=== PATIENT | male | born 1940 | race Caucasian/White ===

== ENCOUNTER → 2016-12-21 | Outpatient (REF) | payer MEDICARE ==
[2016-12-21 12:11] LABS: BASO # 0.1 K/mm3 (0.0-0.2); EOS # 0.1 K/mm3 (0.0-0.50); EOS % 1.7 % (0.0-3.0); LARGE UNSTAINED CELL # 0.3 K/mm3 (0.0-0.4); LARGE UNSTAINED CELL % 3.7 % (0.0-4.0); LYMPH # 2.8 K/mm3 (1.5-4.5); LYMPH % 40.6 % (24.0-44.0); MEAN CORPUSCULAR HEMOGLOBIN 33.9 pg (27.0-33.0); MEAN CORPUSCULAR HGB CONC 32.2 g/dl (32.0-36.5); MEAN CORPUSCULAR VOLUME 105.1 fl (80.0-96.0); MONO # 0.5 K/mm3 (0.0-0.8); MONO % 7.6 % (0.0-5.0); NEUTROPHILS # 3.1 K/mm3 (1.8-7.7); NEUTROPHILS % 45.4 % (36.0-66.0); PLATELET COUNT, AUTOMATED 291 k/mm3 (150-450); RED CELL DISTRIBUTION WIDTH 13.9 % (11.5-14.5); WHITE BLOOD COUNT 6.9 K/mm3 (4.0-10.0)
[2016-12-21 12:13] LABS: INR 2.07
[2016-12-21 12:45] LABS: ALBUMIN 3.4 GM/DL (3.2-5.2); ALBUMIN/GLOBULIN RATIO 0.97 (1.00-1.93); ALKALINE PHOSPHATASE 83 U/L (45-117); ALT/SGPT 29 U/L (12-78); ANION GAP 4 MEQ/L (8-16); AST/SGOT 15 U/L (15-37); BILIRUBIN,TOTAL 1.1 MG/DL (0.2-1.0); BLOOD UREA NITROGEN 17 MG/DL (7-18); CALCIUM LEVEL 8.7 MG/DL (8.8-10.2); CARBON DIOXIDE LEVEL 30 MEQ/L (21-32); CHLORIDE LEVEL 106 MEQ/L (98-107); CREATININE FOR GFR 0.77 MG/DL (0.70-1.30); FERRITIN 403 NG/ML (26-388); GLOMERULAR FILTRATION RATE > 60.0 (>42); GLUCOSE, FASTING 124 MG/DL (83-110); PERCENT SATURATION 43.4 % (19.7-37.4); POTASSIUM SERUM 4.7 MEQ/L (3.5-5.1); SODIUM LEVEL 140 MEQ/L (136-145); TOTAL IRON BINDING CAPACITY 242 UG/DL (250-450); TOTAL PROTEIN 6.9 GM/DL (6.4-8.2)
== END ==
LOC: M SFHCPLAZ 11:40
PROVIDERS: ATTEND Family Medicine
DX: I48.91 Unspecified atrial fibrillation (principal); D75.89 Other specified diseases of blood and blood-forming organs; E78.5 Hyperlipidemia, unspecified; Z12.5 Encounter for screening for malignant neoplasm of prostate; Z79.899 Other long term (current) drug therapy
CPT/HCPCS: 36415; 80053; 82728; 83036; 83550; 85025; 85610; 85730; 86140; G0103

== ENCOUNTER → 2017-01-28 | Outpatient (REF) | payer MEDICARE ==
[2017-01-28 11:33] LABS: MEAN CORPUSCULAR HEMOGLOBIN 34.6 pg (27.0-33.0); MEAN CORPUSCULAR HGB CONC 33.1 g/dl (32.0-36.5); MEAN CORPUSCULAR VOLUME 104.6 fl (80.0-96.0); RED CELL DISTRIBUTION WIDTH 13.8 % (11.5-14.5); WHITE BLOOD COUNT 6.7 K/mm3 (4.0-10.0)
[2017-01-28 11:41] LABS: INR 1.91
[2017-01-28 11:53] LABS: BASOPHILS 2 % (0-4); EOSINOPHILS 1 % (0-5)
[2017-01-28 12:13] LABS: ALBUMIN 3.3 GM/DL (3.2-5.2); ALBUMIN/GLOBULIN RATIO 0.87 (1.00-1.93); ALKALINE PHOSPHATASE 90 U/L (45-117); ALT/SGPT 32 U/L (12-78); ANION GAP 4 MEQ/L (8-16); AST/SGOT 17 U/L (15-37); BILIRUBIN,TOTAL 1.1 MG/DL (0.2-1.0); BLOOD UREA NITROGEN 17 MG/DL (7-18); CALCIUM LEVEL 8.9 MG/DL (8.8-10.2); CARBON DIOXIDE LEVEL 30 MEQ/L (21-32); CHLORIDE LEVEL 105 MEQ/L (98-107); CHOLESTEROL LEVEL 121 MG/DL (<200); CREATININE FOR GFR 0.81 MG/DL (0.70-1.30); FREE T4 1.24 NG/DL (0.76-1.46); GLOMERULAR FILTRATION RATE > 60.0 (>42); GLUCOSE, FASTING 133 MG/DL (83-110); POTASSIUM SERUM 4.6 MEQ/L (3.5-5.1); SODIUM LEVEL 139 MEQ/L (136-145); TOTAL PROTEIN 7.1 GM/DL (6.4-8.2); TRIGLYCERIDES LEVEL 46 MG/DL (<150)
== END ==
LOC: M SFHCPLAZ 09:37
PROVIDERS: ATTEND Family Medicine
DX: D75.89 Other specified diseases of blood and blood-forming organs (principal); E78.5 Hyperlipidemia, unspecified; E03.9 Hypothyroidism, unspecified; R73.01 Impaired fasting glucose; I26.99 Other pulmonary embolism without acute cor pulmonale

== ENCOUNTER → 2017-05-24 | Outpatient (REF) | payer MEDICARE ==
[2017-05-24 12:23] LABS: BASO # 0.1 K/mm3 (0.0-0.2); EOS # 0.1 K/mm3 (0.0-0.50); EOS % 1.2 % (0.0-3.0); LARGE UNSTAINED CELL # 0.2 K/mm3 (0.0-0.4); LARGE UNSTAINED CELL % 2.8 % (0.0-4.0); LYMPH # 2.7 K/mm3 (1.5-4.5); LYMPH % 45.3 % (24.0-44.0); MEAN CORPUSCULAR HEMOGLOBIN 34.3 pg (27.0-33.0); MEAN CORPUSCULAR HGB CONC 32.9 g/dl (32.0-36.5); MEAN CORPUSCULAR VOLUME 104.3 fl (80.0-96.0); MONO # 0.5 K/mm3 (0.0-0.8); MONO % 8.6 % (0.0-5.0); NEUTROPHILS # 2.3 K/mm3 (1.8-7.7); NEUTROPHILS % 41.1 % (36.0-66.0); PLATELET COUNT, AUTOMATED 316 k/mm3 (150-450); RED CELL DISTRIBUTION WIDTH 13.9 % (11.5-14.5); WHITE BLOOD COUNT 5.7 K/mm3 (4.0-10.0)
[2017-05-24 12:26] LABS: INR 1.82
[2017-05-24 12:35] LABS: ALBUMIN 3.5 GM/DL (3.2-5.2); ALBUMIN/GLOBULIN RATIO 0.88 (1.00-1.93); ALKALINE PHOSPHATASE 90 U/L (45-117); ALT/SGPT 28 U/L (12-78); ANION GAP 7 MEQ/L (8-16); AST/SGOT 17 U/L (15-37); BILIRUBIN,TOTAL 1.1 MG/DL (0.2-1.0); BLOOD UREA NITROGEN 21 MG/DL (7-18); CALCIUM LEVEL 8.6 MG/DL (8.8-10.2); CARBON DIOXIDE LEVEL 28 MEQ/L (21-32); CHLORIDE LEVEL 105 MEQ/L (98-107); GLOMERULAR FILTRATION RATE > 60.0 (>42); GLUCOSE, FASTING 107 MG/DL (83-110); POTASSIUM SERUM 4.8 MEQ/L (3.5-5.1); SODIUM LEVEL 140 MEQ/L (136-145); TOTAL PROTEIN 7.5 GM/DL (6.4-8.2)
[2017-05-24 12:37] LABS: VITAMIN B12 LEVEL 412 PG/ML (247-911)
== END ==
LOC: M SFHCPLAZ 09:42
PROVIDERS: ATTEND Family Medicine
DX: E55.9 Vitamin D deficiency, unspecified (principal); D75.89 Other specified diseases of blood and blood-forming organs; Z79.01 Long term (current) use of anticoagulants; Z79.899 Other long term (current) drug therapy

== ENCOUNTER → 2017-09-02 | Outpatient (REF) | payer MEDICARE ==
[2017-09-02 11:11] LABS: INR 2.23
== END ==
LOC: M SFHCPLAZ 10:44
DX: Z51.81 Encounter for therapeutic drug level monitoring (principal); Z79.01 Long term (current) use of anticoagulants
CPT/HCPCS: 85610

== ENCOUNTER → 2017-09-23 | Outpatient (REF) | payer MEDICARE ==
[2017-09-23 12:04] LABS: INR 2.05; PROTHROMBIN TIME 23.8 SECONDS (12.4-14.5)
[2017-09-23 12:05] LABS: PARTIAL THROMBOPLASTIN TIME 37.6 SECONDS (26.8-37.9)
[2017-09-23 12:24] LABS: ESTIMATED AVERAGE GLUCOSE 126 MG/DL (60-110)
[2017-09-23 12:25] LABS: ALBUMIN 3.7 GM/DL (3.2-5.2); ANION GAP 6 MEQ/L (8-16); BLOOD UREA NITROGEN 25 MG/DL (7-18); C REACTIVE PROTEIN QUANTITATIV < 0.30 MG/DL (0.00-0.30); CALCIUM LEVEL 9.2 MG/DL (8.8-10.2); CARBON DIOXIDE LEVEL 27 MEQ/L (21-32); CHLORIDE LEVEL 105 MEQ/L (98-107); CHOLESTEROL LEVEL 118 MG/DL (<200); CHOLESTEROL RISK RATIO 2.269 (<5); CPK CREATINE PHOSPHOKINASE 120 U/L (39-308); CREATININE FOR GFR 0.73 MG/DL (0.70-1.30); FREE T4 1.41 NG/DL (0.76-1.46); GLOMERULAR FILTRATION RATE > 60.0 (>42); GLUCOSE, FASTING 115 MG/DL (83-110); HDL CHOLESTEROL 52 MG/DL (>40); NON-HDL-C 66 MG/DL; PHOSPHORUS LEVEL 2.5 MG/DL (2.5-4.9); POTASSIUM SERUM 4.6 MEQ/L (3.5-5.1); PSA SCREENING 1.13 NG/ML (< 4.0); SODIUM LEVEL 138 MEQ/L (136-145); TRIGLYCERIDES LEVEL 60 MG/DL (<150)
== END ==
LOC: M SFHCPLAZ 09:05
DX: E78.5 Hyperlipidemia, unspecified (principal); E03.9 Hypothyroidism, unspecified; E11.9 Type 2 diabetes mellitus without complications; Z12.5 Encounter for screening for malignant neoplasm of prostate; I26.99 Other pulmonary embolism without acute cor pulmonale; G57.21 Lesion of femoral nerve, right lower limb
CPT/HCPCS: 82550

== ENCOUNTER → 2017-09-28 | Outpatient (CLI) | payer MEDICARE ==
[~2017-09-28] MED LIST: GASTROGRAFIN SOLUTION 30ML (Q9963) As Ordered; ISOVUE-370 76% 100ML VIAL (Q9967) As Ordered
== END ==
LOC: M RAD 13:45
DX: G57.21 Lesion of femoral nerve, right lower limb (principal)
CPT/HCPCS: Q9963

== ENCOUNTER → 2017-11-02 | Outpatient (CLI) | payer MEDICARE | LOC: M RAD 10:41 | DX: M79.651 Pain in right thigh (principal) | CPT/HCPCS: 93971 ==

== ENCOUNTER → 2017-11-13 | Outpatient (CLI) | payer MEDICARE | LOC: M RAD 10:01 | DX: M54.16 Radiculopathy, lumbar region (principal) | CPT/HCPCS: 72148 ==

== ENCOUNTER → 2018-01-11 | Outpatient (CLI) | payer MEDICARE | LOC: M WUC 09:37 | DX: M16.0 Bilateral primary osteoarthritis of hip (principal) | CPT/HCPCS: 73502 ==

== ENCOUNTER → 2018-01-25 | Outpatient (CLI) | payer MEDICARE ==
[~2018-01-25] MED LIST changes: +CONRAY-43 43% 50ML VIAL (Q9960) As Ordered; -GASTROGRAFIN SOLUTION 30ML (Q9963) As Ordered; -ISOVUE-370 76% 100ML VIAL (Q9967) As Ordered; +LIDOCAINE 1% MDV 20ML VIAL As Ordered; +TRIAMCINOLONE ACETONIDE SUSP 40 MG/ML VIAL (J3301) As Ordered
== END ==
LOC: M RADPRO 09:55
DX: M16.0 Bilateral primary osteoarthritis of hip (principal)
CPT/HCPCS: 20610

== ENCOUNTER → 2018-02-01 | Outpatient (REF) | payer MEDICARE ==
[2018-02-01 12:32] LABS: BASO # 0.1 10^3/uL (0.0-0.2); BASO % 0.6 % (0.0-1.0); EOS # 0.2 10^3/uL (0.0-0.50); EOS % 2.1 % (0.0-3.0); HEMATOCRIT 42.2 % (42.0-52.0); HEMOGLOBIN 14.5 g/dl (13.5-17.5); IMMATURE GRANULOCYTE % 0.3 % (0-3.0); LYMPH # 3.4 10^3/uL (1.5-4.5); LYMPH % 37.9 % (24.0-44.0); MEAN CORPUSCULAR HEMOGLOBIN 34.2 pg (27.0-33.0); MEAN CORPUSCULAR HGB CONC 34.4 g/dl (32.0-36.5); MEAN CORPUSCULAR VOLUME 99.5 fl (80.0-96.0); MONO # 0.8 10^3/uL (0.0-0.8); MONO % 9.1 % (0.0-5.0); NEUTROPHILS # 4.5 10^3/uL (1.8-7.7); PLATELET COUNT, AUTOMATED 271 10^3/uL (150-450); RED BLOOD COUNT 4.24 10^6/uL (4.30-6.10); RED CELL DISTRIBUTION WIDTH 15.4 % (11.5-14.5)
[2018-02-01 12:45] LABS: INR 2.19; PROTHROMBIN TIME 25.2 SECONDS (12.4-14.5)
[2018-02-01 12:46] LABS: PARTIAL THROMBOPLASTIN TIME 34.2 SECONDS (26.8-37.9)
[2018-02-01 12:54] LABS: FREE T4 1.44 NG/DL (0.76-1.46)
[2018-02-01 13:49] LABS: ESTIMATED AVERAGE GLUCOSE 151 MG/DL (60-110); HEMOGLOBIN A1c 6.9 %
== END ==
LOC: M SFHCPLAZ 08:54
DX: D75.89 Other specified diseases of blood and blood-forming organs (principal); E03.9 Hypothyroidism, unspecified; E11.9 Type 2 diabetes mellitus without complications; Z79.01 Long term (current) use of anticoagulants
CPT/HCPCS: 84443

== ENCOUNTER → 2018-04-13 | Outpatient (REF) | payer MEDICARE ==
[2018-04-13 16:07] LABS: INR 2.62; PROTHROMBIN TIME 28.6 SECONDS (12.1-14.4)
== END ==
LOC: M SFHCPLAZ 12:50
DX: I48.2 Chronic atrial fibrillation (principal)
CPT/HCPCS: 85610

== ENCOUNTER → 2018-05-25 | Outpatient (CLI) | payer MEDICARE ==
[~2018-05-25] MED LIST changes: +LIDOCAINE 2% MDV 20 ML VIAL As Ordered
== END ==
LOC: M RADPRO 09:15
DX: M16.0 Bilateral primary osteoarthritis of hip (principal)
CPT/HCPCS: 20610

== ENCOUNTER → 2018-05-31 | Outpatient (REF) | payer MEDICARE ==
[2018-05-31 11:54] LABS: BASO % 0.5 % (0.0-1.0); EOS # 0.1 10^3/uL (0.0-0.50); EOS % 1.2 % (0.0-3.0); HEMATOCRIT 42.9 % (42.0-52.0); HEMOGLOBIN 14.7 g/dl (13.5-17.5); IMMATURE GRANULOCYTE % 0.3 % (0-3.0); LYMPH # 3.7 10^3/uL (1.5-4.5); LYMPH % 42.5 % (24.0-44.0); MEAN CORPUSCULAR HGB CONC 34.3 g/dl (32.0-36.5); MEAN CORPUSCULAR VOLUME 99.3 fl (80.0-96.0); MONO # 0.7 10^3/uL (0.0-0.8); MONO % 8.6 % (0.0-5.0); NEUTROPHILS % 46.9 % (36.0-66.0); PLATELET COUNT, AUTOMATED 308 10^3/uL (150-450); RED BLOOD COUNT 4.32 10^6/uL (4.30-6.10); RED CELL DISTRIBUTION WIDTH 15.5 % (11.5-14.5); RETICULOCYTE # 77.3 10^9/L (17-77); RETICULOCYTE % 1.8 % (0.5-1.5); WHITE BLOOD COUNT 8.6 10^3/uL (4.0-10.0)
[2018-05-31 12:03] LABS: INR 2.09; PROTHROMBIN TIME 23.9 SECONDS (12.1-14.4)
[2018-05-31 12:04] LABS: PARTIAL THROMBOPLASTIN TIME 33.5 SECONDS (25.4-37.6)
[2018-05-31 12:05] LABS: APPEARANCE, URINE CLEAR (CLEAR); BACTERIA, URINE AUTO NEGATIVE (NEGATIVE); BILIRUBIN, URINE AUTO NEGATIVE (NEGATIVE); BLOOD, URINE BLOOD NEGATIVE (NEGATIVE); COLOR, URINE YELLOW (YELLOW); GLUCOSE, URINE (UA) AUTO NEGATIVE (NEGATIVE); KETONE, URINE AUTO NEGATIVE (NEGATIVE); LEUKOCYTE ESTERASE, URINE AUTO NEGATIVE (NEGATIVE); MUCUS, URINE SMALL (NEGATIVE); NITRITE, URINE AUTO NEGATIVE (NEGATIVE); PROTEIN, URINE AUTO NEGATIVE (NEGATIVE); RBC, URINE AUTO 1 /HPF (0-3); SPECIFIC GRAVITY URINE AUTO 1.025 (1.002-1.035); SQUAMOUS EPITHELIAL CELL UR AU 0 /HPF (0-6); WBC, URINE AUTO 1 /HPF (0-3)
[2018-05-31 12:35] LABS: ALBUMIN 3.6 GM/DL (3.2-5.2); ALKALINE PHOSPHATASE 75 U/L (45-117); ALT/SGPT 42 U/L (12-78); ANION GAP 11 MEQ/L (8-16); AST/SGOT 17 U/L (7-37); BILIRUBIN,TOTAL 1.3 MG/DL (0.2-1.0); BLOOD UREA NITROGEN 32 MG/DL (7-18); CALCIUM LEVEL 9.4 MG/DL (8.8-10.2); CARBON DIOXIDE LEVEL 27 MEQ/L (21-32); CHLORIDE LEVEL 103 MEQ/L (98-107); CREATININE FOR GFR 0.78 MG/DL (0.70-1.30); GLOMERULAR FILTRATION RATE > 60.0 (>42); GLUCOSE, FASTING 115 MG/DL (70-100); MAGNESIUM LEVEL 2.5 MG/DL (1.8-2.4); SODIUM LEVEL 141 MEQ/L (136-145); TOTAL PROTEIN 7.2 GM/DL (6.4-8.2)
[2018-05-31 15:55] LABS: ESTIMATED AVERAGE GLUCOSE 131 MG/DL (60-110); HEMOGLOBIN A1c 6.2 %
[2018-05-31 16:22] LABS: MAU/CREAT RATIO 7.5 MCG/MG (0.0-30.0)
[2018-06-01 14:20] LABS: INSULIN LEVEL 31.7 uIU/mL (2.6-24.9)
== END ==
LOC: M SFHCPLAZ 08:44
DX: D75.89 Other specified diseases of blood and blood-forming organs (principal); I10 Essential (primary) hypertension; E11.9 Type 2 diabetes mellitus without complications; I26.99 Other pulmonary embolism without acute cor pulmonale
CPT/HCPCS: 83525

== ENCOUNTER → 2018-08-02 | Outpatient (REF) | payer MEDICARE ==
[2018-08-02 11:12] LABS: INR 1.84; PROTHROMBIN TIME 21.6 SECONDS (12.1-14.4)
== END ==
LOC: M SFHCPLAZ 08:36
DX: Z51.81 Encounter for therapeutic drug level monitoring (principal); Z79.01 Long term (current) use of anticoagulants
CPT/HCPCS: 85610

== ENCOUNTER → 2018-08-12 | Outpatient (REF) | payer MEDICARE ==
[2018-08-12 12:17] LABS: BASO # 0.1 10^3/uL (0.0-0.2); EOS # 0.2 10^3/uL (0.0-0.50); HEMATOCRIT 42.2 % (42.0-52.0); HEMOGLOBIN 14.3 g/dl (13.5-17.5); IMMATURE GRANULOCYTE % 0.4 % (0-3.0); LYMPH # 3.5 10^3/uL (1.5-4.5); LYMPH % 44.3 % (24.0-44.0); MEAN CORPUSCULAR HEMOGLOBIN 34.9 pg (27.0-33.0); MEAN CORPUSCULAR HGB CONC 33.9 g/dl (32.0-36.5); MEAN CORPUSCULAR VOLUME 102.9 fl (80.0-96.0); MONO # 0.8 10^3/uL (0.0-0.8); MONO % 9.8 % (0.0-5.0); NEUTROPHILS # 3.3 10^3/uL (1.8-7.7); NEUTROPHILS % 42.5 % (36.0-66.0); PLATELET COUNT, AUTOMATED 303 10^3/uL (150-450); RED CELL DISTRIBUTION WIDTH 15.7 % (11.5-14.5); WHITE BLOOD COUNT 7.9 10^3/uL (4.0-10.0)
[2018-08-12 12:21] LABS: HEMATOCRIT 42.2 % (42.0-52.0)
[2018-08-12 12:25] LABS: CHOLESTEROL LEVEL 133 MG/DL (<200); CHOLESTEROL RISK RATIO 2.418 (<5); CPK CREATINE PHOSPHOKINASE 79 U/L (39-308); FREE T4 1.35 NG/DL (0.76-1.46); HDL CHOLESTEROL 55 MG/DL (>40); LDL CHOLESTEROL 67 MG/DL (<100); NON-HDL-C 78 MG/DL; TRIGLYCERIDES LEVEL 57 MG/DL (<150)
[2018-08-12 12:26] LABS: INR 2.37; PROTHROMBIN TIME 26.4 SECONDS (12.1-14.4)
[2018-08-12 12:27] LABS: PARTIAL THROMBOPLASTIN TIME 36.5 SECONDS (25.4-37.6); VITAMIN B12 LEVEL 535 PG/ML (247-911)
[2018-08-12 13:24] LABS: ESTIMATED AVERAGE GLUCOSE 143 MG/DL (60-110); HEMOGLOBIN A1c 6.6 %
[2018-08-16 13:18] LABS: PRETREATED FOLATE FOR RBCFOL 7.3 NG/ML; RBC FOLATE 363 NG/ML (280-791)
== END ==
LOC: M SFHCPLAZ 08:53
DX: E53.8 Deficiency of other specified B group vitamins (principal); E11.9 Type 2 diabetes mellitus without complications; Z79.01 Long term (current) use of anticoagulants
CPT/HCPCS: 82550

== ENCOUNTER → 2018-08-15 | Outpatient (REF) | payer MEDICARE ==
[2018-08-15 11:49] LABS: BASO # 0.1 10^3/uL (0.0-0.2); BASO % 0.9 % (0.0-1.0); EOS # 0.2 10^3/uL (0.0-0.50); EOS % 2.5 % (0.0-3.0); HEMATOCRIT 42.5 % (42.0-52.0); HEMOGLOBIN 14.2 g/dl (13.5-17.5); IMMATURE GRANULOCYTE % 0.3 % (0-3.0); LYMPH # 2.2 10^3/uL (1.5-4.5); MEAN CORPUSCULAR HEMOGLOBIN 34.3 pg (27.0-33.0); MEAN CORPUSCULAR HGB CONC 33.4 g/dl (32.0-36.5); MEAN CORPUSCULAR VOLUME 102.7 fl (80.0-96.0); MONO # 0.7 10^3/uL (0.0-0.8); MONO % 10.2 % (0.0-5.0); NEUTROPHILS # 3.7 10^3/uL (1.8-7.7); NEUTROPHILS % 54.1 % (36.0-66.0); PLATELET COUNT, AUTOMATED 293 10^3/uL (150-450); RED BLOOD COUNT 4.14 10^6/uL (4.30-6.10); RED CELL DISTRIBUTION WIDTH 15.2 % (11.5-14.5); WHITE BLOOD COUNT 6.9 10^3/uL (4.0-10.0)
[2018-08-15 12:01] LABS: INR 3.02; PARTIAL THROMBOPLASTIN TIME 41.8 SECONDS (25.4-37.6)
== END ==
LOC: M SFHCPLAZ 10:14
DX: M54.5 Low back pain (principal); M25.551 Pain in right hip; W10.8XXA Fall (on) (from) other stairs and steps, initial encounter; Y92.9 Unspecified place or not applicable; Z51.81 Encounter for therapeutic drug level monitoring; Z79.01 Long term (current) use of anticoagulants
CPT/HCPCS: 85610

== ENCOUNTER → 2018-11-03 | Outpatient (REF) | payer MEDICARE ==
[2018-11-03 12:17] LABS: INR 2.75; PROTHROMBIN TIME 29.7 SECONDS (12.1-14.4)
== END ==
LOC: M SFHCPLAZ 10:52
PROVIDERS: ATTEND Physician Assistant Medical
DX: Z51.81 Encounter for therapeutic drug level monitoring (principal); Z79.01 Long term (current) use of anticoagulants

== ENCOUNTER → 2018-12-29 | Outpatient (REF) | payer MEDICARE ==
[2018-12-29 14:58] LABS: INR 2.39; PROTHROMBIN TIME 26.6 SECONDS (12.1-14.4)
== END ==
LOC: M SFHCPLAZ 09:44
PROVIDERS: ATTEND Physician Assistant Medical
DX: Z51.81 Encounter for therapeutic drug level monitoring (principal)

== ENCOUNTER → 2019-02-09 | Outpatient (CLI) | payer MEDICARE ==
[2019-02-09 13:30] LABS: BASO # 0.1 10^3/uL (0.0-0.2); BASO % 1.1 % (0.0-1.0); EOS # 0.1 10^3/uL (0.0-0.50); EOS % 1.4 % (0.0-3.0); HEMATOCRIT 41.5 % (42.0-52.0); HEMOGLOBIN 13.8 g/dl (13.5-17.5); LYMPH # 3.4 10^3/uL (1.5-4.5); LYMPH % 47.2 % (24.0-44.0); MEAN CORPUSCULAR HGB CONC 33.3 g/dl (32.0-36.5); MEAN CORPUSCULAR VOLUME 102.2 fl (80.0-96.0); MONO # 0.7 10^3/uL (0.0-0.8); MONO % 10.1 % (0.0-5.0); NEUTROPHILS # 2.9 10^3/uL (1.8-7.7); NEUTROPHILS % 40.1 % (36.0-66.0); PLATELET COUNT, AUTOMATED 298 10^3/uL (150-450); RED BLOOD COUNT 4.06 10^6/uL (4.30-6.10); WHITE BLOOD COUNT 7.1 10^3/uL (4.0-10.0)
[2019-02-09 13:34] LABS: INR 2.68; PROTHROMBIN TIME 29.1 SECONDS (12.1-14.4)
[2019-02-09 13:35] LABS: PARTIAL THROMBOPLASTIN TIME 41.7 SECONDS (25.4-37.6)
[2019-02-09 13:47] LABS: HEMOGLOBIN A1c 6.2 %
== END ==
LOC: M WUC 08:28
PROVIDERS: ATTEND Family Medicine
DX: D75.89 Other specified diseases of blood and blood-forming organs (principal); E11.9 Type 2 diabetes mellitus without complications; Z12.5 Encounter for screening for malignant neoplasm of prostate; I26.99 Other pulmonary embolism without acute cor pulmonale
CPT/HCPCS: 36415; 83036; 85025; 85610; 85730; G0103

== ENCOUNTER → 2019-03-29 | Outpatient (REF) | payer MEDICARE ==
[2019-03-29 12:25] LABS: INR 2.22; PROTHROMBIN TIME 24.4 SECONDS (11.8-14.0)
== END ==
LOC: M SFHCPLAZ 09:07
PROVIDERS: ATTEND Physician Assistant Medical
DX: Z51.81 Encounter for therapeutic drug level monitoring (principal)

== ENCOUNTER → 2019-11-15 | Outpatient (REF) | payer MEDICARE ==
[2019-11-15 12:05] LABS: INR 2.04; PROTHROMBIN TIME 22.8 SECONDS (11.8-14.0)
== END ==
LOC: M SFHCPLAZ 10:24
PROVIDERS: ATTEND Physician Assistant Medical
DX: Z79.899 Other long term (current) drug therapy (principal)

== ENCOUNTER → 2019-12-19 | Outpatient (CLI) | payer MEDICARE ==
[2019-12-19 10:54] LABS: BASO # 0.1 10^3/uL (0.0-0.2); BASO % 1.2 % (0.0-1.0); EOS # 0.1 10^3/uL (0.0-0.5); EOS % 0.9 % (0.0-3.0); HEMATOCRIT 42.5 % (42.0-52.0); HEMOGLOBIN 14.1 g/dl (13.5-17.5); LYMPH # 4.2 10^3/uL (1.5-5.0); LYMPH % 55.5 % (24.0-44.0); MEAN CORPUSCULAR HEMOGLOBIN 33.8 pg (27.0-33.0); MEAN CORPUSCULAR HGB CONC 33.2 g/dl (32.0-36.5); MEAN CORPUSCULAR VOLUME 101.9 fl (80.0-96.0); MONO # 0.7 10^3/uL (0.0-0.8); MONO % 9.5 % (0.0-5.0); NEUTROPHILS # 2.5 10^3/uL (1.5-8.5); NEUTROPHILS % 32.8 % (36.0-66.0); PLATELET COUNT, AUTOMATED 285 10^3/uL (150-450); RED BLOOD COUNT 4.17 10^6/uL (4.30-6.10); WHITE BLOOD COUNT 7.6 10^3/uL (4.0-10.0)
[2019-12-19 11:02] LABS: INR 2.62; PROTHROMBIN TIME 27.9 SECONDS (11.8-14.0)
[2019-12-19 11:15] LABS: HEMOGLOBIN A1c 6.5 %
[2019-12-19 11:28] LABS: ALBUMIN 3.4 GM/DL (3.2-5.2); ALT/SGPT 43 U/L (12-78); BILIRUBIN,TOTAL 1.3 MG/DL (0.2-1.0); BLOOD UREA NITROGEN 20 MG/DL (7-18); CALCIUM LEVEL 8.5 MG/DL (8.8-10.2); CARBON DIOXIDE LEVEL 28 MEQ/L (21-32); CHLORIDE LEVEL 105 MEQ/L (98-107); FREE T4 1.19 NG/DL (0.76-1.46); GLOMERULAR FILTRATION RATE > 60.0 (>42); GLUCOSE, FASTING 115 MG/DL (70-100); MAGNESIUM LEVEL 2.1 MG/DL (1.8-2.4); POTASSIUM SERUM 4.2 MEQ/L (3.5-5.1); SODIUM LEVEL 137 MEQ/L (136-145); TOTAL PROTEIN 7.5 GM/DL (6.4-8.2); VITAMIN B12 LEVEL 1890 PG/ML (247-911)
== END ==
LOC: M PLALAB 08:43
PROVIDERS: ATTEND Family Medicine
DX: Z12.5 Encounter for screening for malignant neoplasm of prostate (principal); I48.91 Unspecified atrial fibrillation; I10 Essential (primary) hypertension; E03.9 Hypothyroidism, unspecified; E53.8 Deficiency of other specified B group vitamins; Z79.899 Other long term (current) drug therapy
CPT/HCPCS: 36415; 80053; 82607; 83036; 83735; 84439; 84443; 85025; 85046; 85610; 85730; G0103

== ENCOUNTER 2020-03-18 14:06 | Inpatient (IN) | payer MEDICARE ==
[~2020-03-18] VITALS: Ht 182.9 cm; Wt 98.8 kg
[2020-03-18] MEDS ORDERED: vitamin d (14:18)
[2020-03-18] MEDS ORDERED: RAMI1CAP24 PO (14:18)
[2020-03-18] MEDS ORDERED: LEVO50TA5 PO (14:18)
[2020-03-18] MEDS ORDERED: WARF-20 PO (14:18)
[2020-03-18] MEDS ORDERED: ATOR1TAB21 PO (14:18)
[2020-03-18] MEDS ORDERED: WARF-58 PO (14:18)
[2020-03-18 15:57] LABS: BASO % 0.3 % (0.0-1.0); EOS % 0.1 % (0.0-3.0); HEMATOCRIT 42.2 % (42.0-52.0); HEMOGLOBIN 14.3 g/dl (13.5-17.5); LYMPH # 1.3 10^3/uL (1.5-5.0); MEAN CORPUSCULAR HGB CONC 33.9 g/dl (32.0-36.5); MEAN CORPUSCULAR VOLUME 103.2 fl (80.0-96.0); MONO # 1.2 10^3/uL (0.0-0.8); MONO % 8.7 % (0.0-5.0); NEUTROPHILS # 11.6 10^3/uL (1.5-8.5); NEUTROPHILS % 81.3 % (36.0-66.0); PLATELET COUNT, AUTOMATED 260 10^3/uL (150-450); RED BLOOD COUNT 4.09 10^6/uL (4.30-6.10); WHITE BLOOD COUNT 14.3 10^3/uL (4.0-10.0)
[2020-03-18 16:17] LABS: INR 2.29
[2020-03-18 16:18] LABS: PARTIAL THROMBOPLASTIN TIME 38.2 SECONDS (25.0-38.4)
[2020-03-18 16:20] LABS: ALBUMIN 3.3 GM/DL (3.2-5.2); ALT/SGPT 51 U/L (12-78); BILIRUBIN,DIRECT 0.5 MG/DL (0.0-0.2); BLOOD UREA NITROGEN 22 MG/DL (7-18); CARBON DIOXIDE LEVEL 26 MEQ/L (21-32); CHLORIDE LEVEL 103 MEQ/L (98-107); CK-MB VALUE MASS 2.7 NG/ML (<3.6); CPK CREATINE PHOSPHOKINASE 423 U/L (39-308); CREATININE FOR GFR 0.94 MG/DL (0.70-1.30); GLOMERULAR FILTRATION RATE > 60.0 (>42); GLUCOSE, FASTING 142 MG/DL (70-100); MB/CK RELATIVE INDEX 0.64 (< OR =4); SODIUM LEVEL 136 MEQ/L (136-145); TOTAL PROTEIN 7.3 GM/DL (6.4-8.2); TROPONIN I < 0.02 NG/ML (< 0.10)
--- NOTE | 2020-03-18 16:37 | ECGEPIP ---
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
[2020-03-18] MEDS ORDERED: CYAN500T9 PO (17:16)
[2020-03-18] MEDS ORDERED: VITAD1000T PO (17:16)
[2020-03-18] MEDS ORDERED: ISOVUE-370 76% 100ML VIAL As Ordered ONE (17:33)
--- NOTE | 2020-03-18 18:36 | REPVR ---
PROCEDURE INFORMATION: Exam: CT Angiography Chest With Contrast Exam date and time: 03/18/2020 6:14 PM Age: 79 years old Clinical indication: Shortness of breath; Additional info: SOB, syncope TECHNIQUE: Imaging protocol: Computed tomographic angiography of the chest with intravenous contrast. 3D rendering: MIP and/or 3D reconstructed images were created by the technologist. Radiation optimization: All CT scans at this facility use at least one of these dose optimization techniques: automated exposure control; mA and/or kV adjustment per patient size (includes targeted exams where dose is matched to clinical indication); or iterative reconstruction. Contrast material: ISOVUE 370; Contrast volume: 75 ml; Contrast route: INTRAVENOUS (IV); COMPARISON: CR Chest, 2 view PA, Lat 03/18/2020 3:57 PM FINDINGS: Pulmonary arteries: There are no pulmonary emboli. Aorta: The aorta demonstrates mild atherosclerotic calcification. There is no aortic dissection or aneurysm. Lungs: Mild apical scarring on the right. There is an infiltrate at the right lung base containing foci of calcifications suggesting chronicity. Foci of atelectasis and/or scarring demonstrated in the left upper, right upper and both lower lobes. Pleural space: Small right pleural effusion associated with pleural thickening. Heart: There is mild atherosclerotic calcification of the coronary arteries. Lymph nodes: Unremarkable. No enlarged lymph nodes. Bones/joints: Degenerative changes in the glenohumeral joints bilaterally. The spine demonstrates mild degenerative changes. Soft tissues: Unremarkable. IMPRESSION: 1. Small right pleural effusion associated with pleural thickening. 2. There is an infiltrate at the right lung base containing foci of calcifications suggesting chronicity. No acute appearing infiltrates demonstrated. 3. There is no aortic dissection or aneurysm. 4. There are no pulmonary emboli. Electronically signed by: Darrius Chanel On 03/18/2020 18:36:19 PM
--- NOTE | 2020-03-18 19:44 | HPEPDOC ---
[facility] Medical History & Physical Date of Admission Mar 18, 2020 Date of Service: Mar 18, 2020 Primary Care Physician: Petey Hopper M.D. Attending Physician: EDGAR DUKES MD History and Physical TIME OF SERVICE: 8:45 PM CHIEF COMPLAINT: Loss of consciousness HISTORY OF PRESENT ILLNESS: This is a 79-year-old gentleman who came into the hospital for evaluation after losing consciousness. Last night he had abdominal pain, and woke up 3 times to go to the bathroom, which is atypical for him. He noticed that his urinary stream was not a strong as usual and the urine darker than usual. This morning he had breakfast and lunch. While shopping for remote control, he felt lightheaded and then fell down. He he thinks he might have lost consciousness for about 30 seconds. The event was witnessed by his family who reported he didn't have any seizure-like activity. He didn't hit his head. He denied having fevers, chills, vomiting or diarrhea recently. Per Dr. Davidson CT of the head is negative, CTA of the chest showed chronic right lower lobe infiltrate but no PE. EKG showed sinus rhythm with a heart rate of 84, and inverted T waves in 2, 3, aVF, but the troponin was within normal limits. 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 HOME MEDICATIONS: Please see below. PHYSICAL EXAMINATION: Vital Signs Date Time Temp Pulse Resp B/P (MAP) Pulse Ox O2 Delivery O2 Flow Rate FiO2 03/18/20 14:07 97.8 99 17 137/67 (90) 96 Room Air GEN: well-nourished / well developed/ NAD INTEGUMENT: not flushed/ not jaundice HEENT: NCAT / mucus membranes moist and pink CVS: RRR/NMRG/ no JVP / no lower extremity edema LUNGS: lungs are clear to auscultation bilaterally on room air / no coughing NEURO: CN 2-12 are grossly intact / speech is not dysarthric PSYCH: alert and oriented to person place and time/ able to understand and follow all commands LABORATORY DATA: See below. IMAGING: CTA chest "IMPRESSION: 1. Small right pleural effusion associated with pleural thickening. 2. There is an infiltrate at the right lung base containing foci of calcifications suggesting chronicity. No acute appearing infiltrates demonstrated. 3. There is no aortic dissection or aneurysm. 4. There are no pulmonary emboli." Chest x-ray appears unremarkable but the final report is pending CT cervical spine report pending CT head report pending Vascular ultrasound report pending MICROBIOLOGY: 03/18/20 15:24: Bedside Glucose (Misc Panel) 158H 03/18/20 15:26: Prothrombin Time 25.0H, Prothromb Time International Ratio 2.29, Activated Partial Thromboplast Time 38.2 03/18/20 15:31: Immature Granulocyte % (Auto) 0.6, Neutrophils (%) (Auto) 81.3H, Lymphocytes (%) (Auto) 9.0L, Monocytes (%) (Auto) 8.7H, Eosinophils (%) (Auto) 0.1, Basophils (%) (Auto) 0.3, Neutrophils # (Auto) 11.6H, Lymphocytes # (Auto) 1.3L, Monocytes # (Auto) 1.2H, Eosinophils # (Auto) 0.0, Basophils # (Auto) 0.0, Nucleated Red Blood Cells % (auto) 0.0, Anion Gap 7L, Glomerular Filtration Rate > 60.0, Calcium Level 9.0, Total Bilirubin 3.0H, Direct Bilirubin 0.5H, Aspartate Amino Transf (AST/SGOT) 35, Alanine Aminotransferase (ALT/SGPT) 51, Alkaline Phosphatase 92, Total Creatine Kinase 423H, Creatine Kinase MB 2.7, Creatine Kinase MB Relative Index 0.64, Troponin I < 0.02, Total Protein 7.3, Albumin 3.3, Albumin/Globulin Ratio 0.8, Thyroid Stimulating Hormone (TSH) 1.320 ASSESSMENT: Mr. Foy is a 79-year-old with a history of left lower extremity DVT, HTN, dyslipidemia, prediabetes, hypothyroidism and osteoarthritis, who will be admitted for evaluation of syncope and SIRS who's cause is to be determined. PLAN: 1. Syncope Possibly due to infection versus stroke versus idiopathic EKG and troponin revealing Plan: Admit to medical floor/Telemetry / f/u orthostats / follow-up final CT head and CT cervical spine reports/follow-up MRI of the brain, and carotid ultrasound 2. SIRS He has tachycardia and elevated WBC count The lactic acid is within normal limits Respiratory panel was negative I suspect he has a urinary tract infection because he is complaining of abdominal pain and changes in his urinary stream Plan: Follow-up UA, blood culture and chest x-ray report 3. Mild rhabdomyolysis Likely due to fall. Plan: IV fluids/trend CPK 4. Hyperglycemia/ Prediabetes Plan: Follow-up A1c 5. 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 Hx of A fib Plan: coumadin 7. Chronic hypertension Plan: Ramipril 8. Dyslipidemia Plan: Atorvastatin 9. Hypothyroidism Plan: Levothyroxine 10. Osteoarthritis/debility Plan: PT consult for early mobilization and to prevent deconditioning DVT PROPHYLAXIS: Coumadin DISPOSITION: Likely home after more than two midnight's stay LATE ENTRY 11. PE Found on revision of CTA chest He is already taking Coumadin Plan: the day time team may want to call [facility] to discuss weather the pt also needs IVC filter placement Home Medications Scheduled Atorvastatin Calcium (Atorvastatin Calcium) 20 Mg Tablet, 20 MG PO DAILY Cholecalciferol (Vitamin D3) (Vitamin D3) 1,000 Unit Tablet, 2,000 UNITS PO DAILY Cyanocobalamin (Vitamin B-12) (Vitamin B-12) Unknown Strength Tablet, 1 TAB PO BID Levothyroxine Sodium (Levothyroxine Sodium) 50 Mcg Tablet, 50 MCG PO DAILY Ramipril (Ramipril) 5 Mg Capsule, 5 MG PO BID Warfarin Sodium (Warfarin Sodium) 3 Mg Tablet, 3 MG PO [id number] SUN/MON/TU/WED//WED AT 1700 Warfarin Sodium (Warfarin Sodium) 4 Mg Tablet, 4 MG PO QWEEK SATURDAYS AT 1700 Allergies Coded Allergies: No Known Drug Allergies (Verified Allergy, Unknown, 03/18/20) aspirin (Verified Adverse Reaction, Intermediate, states cant take bc of coumadin, 03/18/20) A-FIB/CHADSVASC A-FIB History Current/History of A-Fib/PAF?: Yes Current PO Anticoag Therapy: Yes EDGAR DUKES MD Mar 18, 2020 19:44
[2020-03-18] MEDS ORDERED: MAALOX 30 ML SUSP *UDC PO PRN (19:45)
[2020-03-18] MEDS ORDERED: MOM 30ML SUSPENSION UDC PO PRN (19:45)
[2020-03-18] MEDS ORDERED: ACETAMINOPHEN TAB 650MG DOSE (2X325MG) PO PRN (19:45)
[2020-03-18 21:36] VITALS: BP 145/83
[2020-03-18] MEDS: NS 1,000 ML IV SCH (23:09)
--- NOTE | 2020-03-19 03:17 | REPVR ---
PROCEDURE INFORMATION: Exam: US Duplex Bilateral Extracranial Arteries Exam date and time: 03/19/2020 2:42 AM Age: 79 years old Clinical indication: Syncope and collapse; Additional info: Syncope R/O CVA TECHNIQUE: Imaging protocol: Real-time Duplex ultrasound scan of the bilateral carotid and vertebral arteries combining hughes scale, color Doppler and spectral waveform analysis. Bilateral exam. COMPARISON: No relevant prior studies available. FINDINGS: Right common carotid artery: Unremarkable. No occlusion or stenosis. Waveforms are normal. Mild hypoechoic plaque in the CCA. Peak systolic velocity is 115 cm/s. Right internal carotid artery: No occlusion or stenosis. Waveforms are normal. Mild echogenic plaque in the origin of the right ICA. Peak systolic velocity is 70 cm/s. Right ICA/CCA ratio: Within normal limits. 0.60. Right external carotid artery: No stenosis in the origin. Right vertebral artery: Unremarkable. Antegrade flow. Left common carotid artery: No occlusion or stenosis. Waveforms are normal. Peak systolic velocity is 119 cm/s. Left internal carotid artery: No occlusion the or stenosis. Waveforms are normal. Mild echogenic plaque in the origin of the ICA. Peak systolic velocity is 103 cm/s. Left ICA/CCA ratio: Within normal limits. 0.87. Left external carotid artery: No stenosis in the origin. Left vertebral artery: Unremarkable. Antegrade flow. IMPRESSION: 1. No carotid arterial stenosis. 2. Mild plaque in the ICA bilaterally. REFERENCES: SRU CRITERIA. The degree of internal carotid artery stenosis is based on criteria defined by the Society of Radiologists in Ultrasound (SRU). Normal is no stenosis. Mild is less than 50% stenosis. Moderate is 50-69% stenosis. Severe is greater than 69% stenosis to near occlusion. Near occlusion is a markedly narrowed lumen. Total occlusion is no detectable patent lumen. Electronically signed by: Tommie Callejas On 03/19/2020 03:17:31 AM
--- NOTE | 2020-03-19 03:33 | REP ---
CT BRAIN WITHOUT CONTRAST: CT brain performed without IV contrast. There is mild atrophy. There is no midline shift or mass effect. There are mild periventricular small vessel ischemic changes, which are chronic in nature. No acute hemorrhage is seen. There is no extra-axial fluid collection. There is no skull fracture. There are vascular calcifications in the carotid siphons. IMPRESSION: Chronic changes, as above. No evidence of acute intracranial hemorrhage or skull fracture. Electronically Signed by Dawood Randhawa MD 03/19/2020 11:57 P
--- NOTE | 2020-03-19 03:39 | REP ---
CT CERVICAL SPINE: CT cervical spine performed in the axial plane. Sagittal and coronal reconstruction images are performed. There is no compression fracture or malalignment. Vertebral bodies are normal in height and are well aligned with normal cervical lordosis. There is no prevertebral soft tissue swelling. There is moderate diffuse anterior and posterior spurring. There is moderate disc space narrowing and subchondral sclerosis at C3-4 through C6-7. There has been prior laminectomy at the C3 through C5 levels. There is some degree of spinal canal narrowing at C6-7. IMPRESSION: Degenerative and postsurgical changes with no acute fracture or dislocation. Electronically Signed by Dawood Randhawa MD 03/19/2020 11:57 P
--- NOTE | 2020-03-19 03:58 | REP ---
BILATERAL LOWER EXTREMITY DUPLEX DOPPLER VENOUS ULTRASOUND: Real-time compression and duplex Doppler interrogation of bilateral lower extremity deep venous systems is performed. Bilaterally, the common femoral and superficial femoral veins, as well as the right popliteal vein, are fully compressible with transducer pressure and demonstrate normal spontaneous and phasic flow without evidence of deep venous thrombosis. There is nonocclusive thrombus in the left popliteal vein. This may be chronic in nature. Electronically Signed by Dawood Randhawa MD 03/19/2020 11:58 P
--- NOTE | 2020-03-19 04:01 | REP ---
REASON: Syncopal episode. There are no priors for comparison. There is a mild patchy right basilar opacity with CP angle blunting. Lung marin are otherwise clear. The left CP angle is sharp. The heart is not enlarged. The osseous structures are within normal limits for the patient's age of 79 years. IMPRESSION: Right basilar opacities, chronic versus acute. If acute, consider subsegmental atelectasis with a small right pleural effusion. Electronically Signed by Camron Henriquez DO 03/19/2020 11:36 A
[2020-03-19 06:00] VITALS: BP 148/78
[2020-03-19 07:10] LABS: HEMATOCRIT 39.2 % (42.0-52.0); HEMOGLOBIN 13.2 g/dl (13.5-17.5); MEAN CORPUSCULAR HEMOGLOBIN 34.6 pg (27.0-33.0); MEAN CORPUSCULAR HGB CONC 33.7 g/dl (32.0-36.5); MEAN CORPUSCULAR VOLUME 102.6 fl (80.0-96.0); PLATELET COUNT, AUTOMATED 249 10^3/uL (150-450); RED BLOOD COUNT 3.82 10^6/uL (4.30-6.10); WHITE BLOOD COUNT 11.6 10^3/uL (4.0-10.0)
[2020-03-19 07:21] LABS: INR 2.09; PROTHROMBIN TIME 23.3 SECONDS (11.8-14.0)
[2020-03-19 07:36] LABS: BLOOD UREA NITROGEN 16 MG/DL (7-18); CALCIUM LEVEL 8.4 MG/DL (8.8-10.2); CARBON DIOXIDE LEVEL 27 MEQ/L (21-32); CHLORIDE LEVEL 106 MEQ/L (98-107); CPK CREATINE PHOSPHOKINASE 434 U/L (39-308); GLOMERULAR FILTRATION RATE > 60.0 (>42); GLUCOSE, FASTING 112 MG/DL (70-100); SODIUM LEVEL 139 MEQ/L (136-145)
[2020-03-19] MEDS ORDERED: LEVOTHYROXINE 50MCG TABLET (0.05MG) PO SCH (09:00)
[2020-03-19] MEDS: cefTRIAXone SOD 1 GM in D5W MINI-BAG PLUS 50 ML IV SCH (09:39)
[2020-03-19] MEDS: ATORVASTATIN 20 MG TAB PO SCH (09:39)
[2020-03-19] MEDS: VITAMIN D 1,000 INTERNATIONAL UNITS TABLET PO SCH (09:39)
[2020-03-19] MEDS: ramipriL 5 MG CAP PO SCH ×2 (09:40→21:22)
--- NOTE | 2020-03-19 10:47 | REPVR ---
PROCEDURE INFORMATION: Exam: MR Head Without Contrast Exam date and time: 03/19/2020 8:52 AM Age: 79 years old Clinical indication: Other: R/O CVA, syncopal episode; Additional info: Syncope R/O CVA TECHNIQUE: Imaging protocol: MR of the head without contrast. COMPARISON: CT Head without contrast 03/18/2020 3:49 PM FINDINGS: Brain: There is no extra-axial collection or intra-axial mass. Moderate diffuse volume loss is within the range of normal for patient age. There are scattered foci of T2/FLAIR hyperintensity within the periventricular and subcortical white matter nonspecific but typically small-vessel ischemia in this age group. There is no diffusion restriction. Ventricles: Normal. No ventriculomegaly. Bones/joints: Unremarkable. Sinuses: Normal as visualized. No acute sinusitis. Mastoid air cells: Normal as visualized. No mastoid effusion. Orbits: Unremarkable. Soft tissues: Unremarkable. IMPRESSION: No acute abnormality. Chronic changes. Electronically signed by: Shahrzad Webb On 03/19/2020 10:46:39 AM
[2020-03-19] MEDS: NS 1,000 ML IV SCH (13:39)
[2020-03-19 14:12] VITALS: BP_SYST 136; BP_SYST 142; BP_SYST 145; BP_DIAS 72; BP_DIAS 76; BP_DIAS 77
[2020-03-19 16:07] VITALS: BP 136/74
[2020-03-19] MEDS ORDERED: WARFARIN SOD 3MG TAB PO SCH (17:00)
--- NOTE | 2020-03-19 18:58 | IPNPDOC ---
Date Seen The patient was seen on 03/19/20. Progress Note Subjective: He is comfortably sitting in bed. He denies having any pain. He denies having urinary symptoms. Objective: General: Well built, Patient is awake, alert, oriented times three, sitting in bed, no apparent distress. Eyes: Conjunctiva clear, pupils equal round and reactive to light and accommodation. EOM full, Fundus: not visualized. ENT: Hearing Bilateral normal. No nasal deviation, yina-pharynx clear with no lesions/erythema. Neck: supple, no masses, trachea midline, no thyroid nodules, masses, tenderness or enlargement. Cardiovascular: S1, S2, normal rhythm, no murmur, rub, or gallop. Respiratory: Chest is clear to auscultation bilaterally, no rhonchi, wheezes or rubs. Abdomen: Soft, bowel sounds positive, no bruits. No tenderness on palpation. Liver edge, spleen, kidney not felt, no masses. Extremities: No clubbing or cyanosis. No edema, no tenderness. Spine: No kyphosis, no para-spinal tenderness, no costovertebral tenderness. Central nervous system (FINANCIAL SALES ASSOCIATE): Awake, alert and fully oriented. Cranial nerves III-XII grossly intact. Motor: Strength normal, patient moves all extremities. Skin: No rashes, lesions, ulcerations, subcutaneous nodules or induration. Assessment: Mr. Foy is a 79-year-old with a history of left lower extremity DVT, HTN, dyslipidemia, hypothyroidism, osteoarthritis, S/P splenectomy, who presented to the ED with an episode of syncope. The event was witnessed by a family member and does not report any seizure-like activity. He was admitted with the suspicion of SIRS and Syncope. Plan: 1. UTI: - U/A: Urine nitrates positive, urine leukocyte esterase 1+. - Started on ceftriaxone 1gm (day 1). - Urine cultures pending. 2. Syncope: Vascular ultrasound: No carotid arterial stenosis, mild plaque in ICA bilaterally. Head CT: Chronic changes, no evidence of acute intracranial hemorrhage or skull fracture. CT cervical spine: no acute fracture or dislocation. CTA chest: Negative for PE, no acute infiltrations in the lung. MRI brain without contrast: No acute abnormalities. 3. Chronic left popliteal DVT: - On Coumadin since 2004, his INR is in therapeutic range. 4. History of A. fib - On Coumadin, monitor. 5. Chronic hypertension: - Continue home medication, Ramipril 5G 6. Dyslipidemia - Continue home medication, Lipitor 20 mg 7. Hypothyroidism: - Continue on home medications, levothyroxine 50 MG. 8. Osteoarthritis/ Debility: - Vitamin D 2000units, Tylenol when necessary. - PT consulted for early mobilization and to prevent deconditioning. DVT prophylaxis: On Coumadin. VS, I&O, 24H, Fishbone Vital Signs/I&O Vital Signs Date Time Temp Pulse Resp B/P (MAP) Pulse Ox O2 Delivery O2 Flow Rate FiO2 03/19/20 16:07 98.5 87 17 136/74 (94) 96 Room Air I&O- Last 24 Hours up to 6 AM 03/19/20 06:00 Intake Total 0 ml Output Total 725 ml Balance -725 ml Laboratory Data 24H LABS Laboratory Tests 2 03/18/20 21:10: Lactic Acid Level 1.1 03/19/20 00:28: Bedside Glucose (Misc Panel) 117H 03/19/20 05:38: Bedside Glucose (Misc Panel) 114H 03/19/20 06:34: Nucleated Red Blood Cells % (auto) 0.0, Prothrombin Time 23.3H, Prothromb Time International Ratio 2.09, Anion Gap 6L, Glomerular Filtration Rate > 60.0, Calcium Level 8.4L, Total Creatine Kinase 434H 03/19/20 06:51: Urine Color YELLOW, Urine Appearance HAZY, Urine pH 6.0, Urine Specific [place] 1.023, Urine Protein NEGATIVE, Urine Glucose (UA) NEGATIVE, Urine Ketones NEGATIVE, Urine Blood 1+H, Urine Nitrite POSITIVEH, Urine Bilirubin NEGATIVE, Urine Urobilinogen 2.0H, Urine Leukocyte Esterase 1+H, Urine WBC (Auto) 87H, Urine RBC (Auto) 0, Urine Hyaline Casts (Auto) 0, Urine Bacteria (Auto) 3+H, Urine Squamous Epithelial Cells 0, Urine Mucus (Auto) LARGE, Urine Sperm (Auto) 03/19/20 11:32: Bedside Glucose (Misc Panel) 97 03/19/20 16:27: Bedside Glucose (Misc Panel) 120H CBC/BMP Laboratory Tests 03/19/20 06:34 Microbiology Microbiology 03/19/20 Urine Culture, Received Pending 03/18/20 Blood Culture, Received Pending 03/18/20 Respiratory Virus Panel (PCR) ([facility]) - Final, Complete BLUE SENIOR MD Mar 19, 2020 18:58
[2020-03-19 22:00] VITALS: BP 132/72
[2020-03-20] MEDS: NS 1,000 ML IV SCH (05:57)
[2020-03-20 06:00] VITALS: BP 120/70
[2020-03-20] MEDS ORDERED: LEVOTHYROXINE 50MCG TABLET (0.05MG) PO SCH (06:00)
[2020-03-20 08:17] LABS: BASO # 0.1 10^3/uL (0.0-0.2); BASO % 0.8 % (0.0-1.0); EOS # 0.1 10^3/uL (0.0-0.5); EOS % 1.4 % (0.0-3.0); HEMATOCRIT 37.9 % (42.0-52.0); HEMOGLOBIN 12.7 g/dl (13.5-17.5); LYMPH # 2.4 10^3/uL (1.5-5.0); MEAN CORPUSCULAR HEMOGLOBIN 34.5 pg (27.0-33.0); MEAN CORPUSCULAR HGB CONC 33.5 g/dl (32.0-36.5); MONO % 12.4 % (0.0-5.0); NEUTROPHILS # 4.4 10^3/uL (1.5-8.5); PLATELET COUNT, AUTOMATED 246 10^3/uL (150-450); RED BLOOD COUNT 3.68 10^6/uL (4.30-6.10); WHITE BLOOD COUNT 7.9 10^3/uL (4.0-10.0)
[2020-03-20 08:28] LABS: INR 1.96; PROTHROMBIN TIME 22.1 SECONDS (11.8-14.0)
[2020-03-20 08:44] LABS: BLOOD UREA NITROGEN 14 MG/DL (7-18); CALCIUM LEVEL 8.5 MG/DL (8.8-10.2); CARBON DIOXIDE LEVEL 24 MEQ/L (21-32); CHLORIDE LEVEL 107 MEQ/L (98-107); CREATININE FOR GFR 0.63 MG/DL (0.70-1.30); GLOMERULAR FILTRATION RATE > 60.0 (>42); GLUCOSE, FASTING 155 MG/DL (70-100); POTASSIUM SERUM 4.3 MEQ/L (3.5-5.1); SODIUM LEVEL 139 MEQ/L (136-145)
[2020-03-20] MEDS: cefTRIAXone SOD 1 GM in D5W MINI-BAG PLUS 50 ML IV SCH (09:24)
[2020-03-20 09:25] VITALS: BP 126/69
[2020-03-20] MEDS: ramipriL 5 MG CAP PO SCH (09:25)
[2020-03-20] MEDS: VITAMIN D 1,000 INTERNATIONAL UNITS TABLET PO SCH (09:25)
[2020-03-20] MEDS: ATORVASTATIN 20 MG TAB PO SCH (09:25)
[2020-03-20] MEDS ORDERED: CEFD300CAP PO (10:25)
--- NOTE | 2020-03-21 17:20 | DS.PDOC ---
Discharge Summary General Date of Admission Mar 18, 2020 at 19:38 Date of Discharge 03/20/20 Discharge Summary PROCEDURES PERFORMED DURING STAY: [None]. ADMITTING DIAGNOSES: 1. Left popliteal DVT/protein C deficiency, on Coumadin. 2. Chronic hypertension. 3. Dyslipidemia. 4. Hypothyroidism. 5. BPV. 6. Splenectomy for ITP. 7. History of hepatitis S/P interferon and ribavirin. 8. Right hip osteoarthritis, uses a walker or cane. 9. History of atrial fibrillation. 10. Prediabetes. DISCHARGE DIAGNOSES: 1. UTI. 2. Syncope. 3. Chronic left popliteal DVT. 4. History of atrial fibrillation. 5. Chronic hypertension 6. Dyslipidemia 7. Hypothyroidism. 8. Right hip Osteoarthritis. COMPLICATIONS/CHIEF COMPLAINT: Loss of consciousness. HISTORY OF PRESENT ILLNESS: Mr. Foy is a 79-year-old gentleman who came into the hospital as he had an episode of loss of consciousness when he was out shopping for about 30 seconds and this episode was witnessed by his family and reports he did not have any seizure-like activity and didnt hit his head. He reports having abdominal pain and was up multiple times to go to bathroom the night before. He had a narrow stream and dark urine. Denies having fever, chills, vomiting or diarrhea on admission. HOSPITAL COURSE: On admission, He got CT head to rule out intracranial h emorrhage. CT cervical spine, no acute fracture or dislocation. MRI brain without contrast with no acute abnormalities. Carotid ultrasounds, no carotid artery stenosis. CTA chest, negative for PE. His U/A positive for nitrates and leukocyte esterase and was started on ceftriaxone (two days). Patient denies having any urinary symptoms. He was continued on his home medications Coumadin (He missed a dose of Coumadin on Wednesday, on the day of admission). His blood cultures were negative, urine cultures were pending but preliminary results of 100,000 gram-negative rods. Will switch him to oral antibiotics, Cefdinir 300mg BID for 5 days. He was doing well with PT/OT. DISCHARGE MEDICATIONS: Please see below. ALLERGIES: Please see below. PHYSICAL EXAMINATION ON DISCHARGE: General: Well built, Patient is awake, alert, oriented times three, sitting in bed, no apparent distress. Eyes: Conjunctiva clear, pupils equal round and reactive to light and accommodation. EOM full, Fundus: not visualized. ENT: Hearing Bilateral normal. No nasal deviation, yina-pharynx clear with no lesions/erythema. Neck: supple, no masses, trachea midline, no thyroid nodules, masses, tenderness or enlargement. Cardiovascular: S1, S2, normal rhythm, no murmur, rub, or gallop. Respiratory: Chest is clear to auscultation bilaterally, no rhonchi, wheezes or rubs. Abdomen: Soft, bowel sounds positive, no bruits. No tenderness on palpation. Extremities: No clubbing or cyanosis. No edema, no tenderness. His left leg is bigger than the right. Spine: No kyphosis, no para-spinal tenderness, no costovertebral tenderness. Central nervous system ([employer]): Awake, alert and fully oriented. Cranial nerves III-XII grossly intact. Motor: Strength normal, patient moves all extremities. Skin: No rashes, lesions, ulcerations, subcutaneous nodules or induration. LABORATORY DATA: Please see below. IMAGIN. Head CT: No evidence of acute intracranial hemorrhage or skull fracture. 2. CT cervical spine: Degenerative and postsurgical changes with No acute fractu re or dislocation. 3. CTA chest: Small right pleural effusion associated with pleural thickening. There is no aortic dissection or aneurysm. In addendum suspected PE in the apical left upper lobe was documented. Reviewed with radiology and rules out pulmonary embolism. 4. Chest x-ray: Right basilar opacities, chronic versus acute. If acute consider subsegmental atelectasis with a small right pleural effusion. 5. Vascular ultrasound: No carotid artery stenosis, mild plaque in the ICA bilaterally. 6. Brain MRI: No acute abnormalities. Chronic changes. PROGNOSIS: Good ACTIVITY: [As tolerated]. DIET: Regular diet DISCHARGE PLAN: Continue Cefdinir 300mg BID for 5 days. DISPOSITION: Patient is going home DISCHARGE INSTRUCTIONS: 1. Follow-up with the PCP in 7 days. 2. Take cefdinir 300 mg twice daily for 5 days. 3. Take Coumadin 3 mg Wednesday to Wednesday and 4 mg on Wednesday. Monitor INR. ITEMS TO FOLLOWUP ON OUTPATIENT: 1. Follow with your PCP in 7 days. DISCHARGE CONDITION: [Stable]. TIME SPENT ON DISCHARGE:35 minutes. Note written by Mathew Ortega MD and reviewed. I have personally evaluated and examined the patient. Discussed with resident regarding plan of care and agree with the above assessment and plan. Vital Signs/I&Os Vital Signs Date Time Temp Pulse Resp B/P (MAP) Pulse Ox O2 Delivery O2 Flow Rate FiO2 03/20/20 09:25 126/69 03/20/20 06:00 98.0 82 20 94 Room Air I&O- Last 24 Hours up to 6 AM 03/21/20 06:00 Intake Total 960 ml Output Total 900 ml Balance 60 ml Microbiology Microbiology 03/19/20 Urine Culture - Final, Complete Klebsiella Oxytoca 03/18/20 Blood Culture - Preliminary, Resulted No Growth after 48 hours. All Specime... 03/18/20 Respiratory Virus Panel (PCR) ([facility]) - Final, Complete Discharge Medications Scheduled Atorvastatin Calcium (Atorvastatin Calcium) 20 Mg Tablet, 20 MG PO DAILY, (Reported) Cefdinir (Cefdinir) 300 Mg Capsule, 300 MG PO BID Cholecalciferol (Vitamin D3) (Vitamin D3) 1,000 Unit Tablet, 2,000 UNITS PO DAILY, (Reported) Cyanocobalamin (Vitamin B-12) (Vitamin B-12) Unknown Strength Tablet, 1 TAB PO BID, (Reported) Levothyroxine Sodium (Levothyroxine Sodium) 50 Mcg Tablet, 50 MCG PO DAILY, (Reported) Ramipril (Ramipril) 5 Mg Capsule, 5 MG PO BID, (Reported) Warfarin Sodium (Warfarin Sodium) 3 Mg Tablet, 3 MG PO 6XWK, (Reported) SUN/MON/WED/WED//WED AT 1700 Warfarin Sodium (Warfarin Sodium) 4 Mg Tablet, 4 MG PO QWEEK, (Reported) SATURDAYS AT 1700 Allergies Coded Allergies: No Known Drug Allergies (Verified Allergy, Unknown, 03/18/20) aspirin (Verified Adverse Reaction, Intermediate, states cant take bc of coumadin, 03/18/20) BLUE SENIOR MD Mar 21, 2020 17:20
[2020-03-23] MEDS ORDERED: WARFARIN SOD 4 MG TAB PO SCH (17:00)
== END 2020-03-20 14:21 | disposition home health service (06) | DRG 300 ==
LOC: M ED 14:06 → M ED INP 19:38 → ENRESERV 20:37 → M MSPAV 21:36
PROVIDERS: ADMIT Internal Medicine; ATTEND Student in an Organized Health Care Education/Training Program
DX: I82.532 Chronic embolism and thrombosis of left popliteal vein (principal); M62.82 Rhabdomyolysis; N39.0 Urinary tract infection, site not specified; D68.59 Other primary thrombophilia; I48.91 Unspecified atrial fibrillation; R55 Syncope and collapse; I10 Essential (primary) hypertension; E78.5 Hyperlipidemia, unspecified; M16.11 Unilateral primary osteoarthritis, right hip; E03.9 Hypothyroidism, unspecified; Z79.01 Long term (current) use of anticoagulants; Z79.899 Other long term (current) drug therapy; Z88.6 Allergy status to analgesic agent; Z90.81 Acquired absence of spleen

== ENCOUNTER → 2020-04-01 | Outpatient (REF) | payer MEDICARE ==
[~2020-04-01] MED LIST changes: +ATOR1TAB21 PO; +CEFD300CAP PO; -CONRAY-43 43% 50ML VIAL (Q9960) As Ordered; +CYAN500T10 PO; +D31000TA2 PO; +LEVO50TA5 PO; -LIDOCAINE 1% MDV 20ML VIAL As Ordered; -LIDOCAINE 2% MDV 20 ML VIAL As Ordered; +RAMI1CAP24 PO; -TRIAMCINOLONE ACETONIDE SUSP 40 MG/ML VIAL (J3301) As Ordered; +WARF-20 PO; +WARF-58 PO; +vitamin d
[2020-04-26 21:42] LABS: BASO # 0.1 10^3/uL (0.0-0.2); BASO % 1.2 % (0.0-1.0); EOS # 0.1 10^3/uL (0.0-0.5); EOS % 1.5 % (0.0-3.0); HEMATOCRIT 44.1 % (42.0-52.0); HEMOGLOBIN 14.4 g/dl (13.5-17.5); LYMPH # 4.2 10^3/uL (1.5-5.0); LYMPH % 52.2 % (24.0-44.0); MEAN CORPUSCULAR HEMOGLOBIN 34.7 pg (27.0-33.0); MEAN CORPUSCULAR HGB CONC 32.7 g/dl (32.0-36.5); MEAN CORPUSCULAR VOLUME 106.3 fl (80.0-96.0); MONO # 0.8 10^3/uL (0.0-0.8); MONO % 10.4 % (0.0-5.0); NEUTROPHILS # 2.8 10^3/uL (1.5-8.5); NEUTROPHILS % 34.6 % (36.0-66.0); PLATELET COUNT, AUTOMATED 332 10^3/uL (150-450); RED BLOOD COUNT 4.15 10^6/uL (4.30-6.10); WHITE BLOOD COUNT 8.1 10^3/uL (4.0-10.0)
[2020-06-07 15:21] LABS: GLUCOSE, FASTING SEE SEPARATE REPORT MG/DL
== END ==
LOC: M SFHCPLAZ 09:24
PROVIDERS: ATTEND Physician Assistant Medical
DX: N30.01 Acute cystitis with hematuria (principal)

== ENCOUNTER → 2020-04-04 | Outpatient (REF) | payer MEDICARE ==
[2020-04-30 12:26] LABS: INR 1.98
== END ==
LOC: M SFHCPLAZ 10:51
PROVIDERS: ATTEND Physician Assistant Medical
DX: Z51.81 Encounter for therapeutic drug level monitoring (principal)

== ENCOUNTER 2020-05-24 21:57 | Emergency (ER) | payer MEDICARE ==
[~2020-05-24] VITALS: Ht 182.9 cm; Wt 90.9 kg
--- NOTE | 2020-05-24 22:39 | REPVR ---
PROCEDURE INFORMATION: Exam: CT Head Without Contrast Exam date and time: 05/24/2020 10:18 PM Age: 79 years old Clinical indication: Injury or trauma; Fall; Initial encounter; Blunt trauma (contusions or hematomas); Additional info: Fall hit head on coumadin TECHNIQUE: Imaging protocol: Computed tomography of the head without contrast. Radiation optimization: All CT scans at this facility use at least one of these dose optimization techniques: automated exposure control; mA and/or kV adjustment per patient size (includes targeted exams where dose is matched to clinical indication); or iterative reconstruction. COMPARISON: CT Head without contrast 03/18/2020 3:49 PM FINDINGS: Brain: There is no acute intracranial hemorrhage, cerebral edema, or midline shift. Chronic microvascular ischemic changes are seen in the periventricular white matter. Age-related cerebral and cerebellar volume loss is present. Ventricles: No hydrocephalus. Bones/joints: No acute fracture. Paranasal sinuses: There is no acute sinusitis. Mastoid air cells: The mastoid air cells are clear. Orbits: The included orbital structures are unremarkable. Vasculature: Atherosclerotic calcifications are seen involving the cavernous carotid arteries. Soft tissues: Unremarkable. IMPRESSION: 1. No acute intracranial abnormality. 2. Atrophy and chronic deep white matter ischemic changes. Electronically signed by: Ervin Boateng On 05/24/2020 22:39:08 PM
[2020-05-24] MEDS ORDERED: DERMABOND TOPICAL SKIN ADHESIVE TOP ONE (23:15)
[2020-05-24 23:21] VITALS: BP 139/78
== END 2020-05-24 23:34 | disposition home or self-care (01) ==
LOC: M ED 21:57
DX: S01.01XA Laceration without foreign body of scalp, initial encounter (principal); W19.XXXA Unspecified fall, initial encounter; Y92.099 Unspecified place in other non-institutional residence as the place of occurrence of the external cause; Y93.9 Activity, unspecified; Y99.9 Unspecified external cause status; E11.9 Type 2 diabetes mellitus without complications; I10 Essential (primary) hypertension; R90.82 White matter disease, unspecified; G31.1 Senile degeneration of brain, not elsewhere classified; Z79.01 Long term (current) use of anticoagulants; Z79.899 Other long term (current) drug therapy; Z88.8 Allergy status to other drugs, medicaments and biological substances

== ENCOUNTER → 2020-06-25 | Outpatient (POV) | payer MEDICARE ==
--- NOTE | 2020-06-26 11:02 | IRCOV ---
[facility] IR Consult Office Visit IR Consult Office Visit DATE: Jun 25, 2020 Patient agreed to this telephone consultation. I spent 30 minutes reviewing patient's records, imaging and talking to the patient. REASON FOR CONSULTATION/CHIEF COMPLAINT: Popliteal vein thrombus. HISTORY OF PRESENT ILLNESS: 79-year-old male with history of left popliteal deep vein thrombosis in 2004. At that time, he presented with syncope after he had stitches removed from his right hand. He then passed out in the elevator, going out of the office. At that time, he was worked up and found to have a DVT in the left popliteal vein. He was treated with Coumadin. He remains on Coumadin due to atrial fibrillation and protein C deficiency. He again suffered syncope in March of this year, at which time, he was worked up and found to have a chronic left popliteal vein thrombus without pulmonary embolus. He does wear compression stockings and he exercises his leg. There is no family history of deep vein thrombosis. He reports his left leg has always been bigger than his right leg. No history of iliofemoral DVT. No history of left lower extremity ulcers. ALLERGIES: Please see below. HOME MEDICATIONS: Please see below. PAST MEDICAL HISTORY: Hypothyroidism Obesity Popliteal DVT Protein C deficiency on chronic Coumadin therapy Hepatitis C Diabetes Degenerative disease Radiculopathy Lumbar DJD Supraspinatus tendinitis Osteoarthritis Hypertension Nephrolithiasis Atrial fibrillation PAST SURGICAL HISTORY: Splenectomy FAMILY HISTORY: No family history of DVT. SOCIAL HISTORY: Nonsmoker. Denies alcohol or drugs. REVIEW OF SYSTEMS: Otherwise negative. PHYSICAL EXAMINATION: No video on patient side. LABORATORY DATA: 04/01/2020 hemoglobin 14.4 hematocrit 44.1 WBC 8.1 platelets 332 04/04/2020 INR 1.98 Imaging: I personally reviewed the ultrasound left lower extremity from December 2005. There was below-knee deep vein thrombus. No iliofemoral thrombus. I personally reviewed the lower extremity venous ultrasound study from March 2020. There is some eccentric irregularity in the left popliteal vein. No occlusive thrombus. No iliofemoral DVT. I personally reviewed the CT angiogram of the chest performed in March 2020. No main, lobar or segmental pulmonary emboli. I personally reviewed the abdomen pelvis with contrast performed in September 2017. There is no left common iliac vein compression. No collaterals or varicosities in the pelvis or groin to indicate obstruction. ASSESSMENT/PLAN: 79-year-old male with remote history of one episode of left popliteal DVT, without history of iliofemoral DVT, recurrent DVT or PE. Patient does not meet criteria for thrombolysis, thrombectomy or IVC filter placement. Given that the DVT was distal, lack of iliofemoral DVT and/or ongoing venous hypertension plus unremarkable appearing left common iliac vein on prior CT pelvis, he is unlikely to have May Thurner syndrome. Therefore, further intervention is not indicated at present. Thank you for this referral. CC Valentina Gregory. Cc Dr. Hopper Allergies Coded Allergies: No Known Drug Allergies (Verified Allergy, Unknown, 03/18/20) aspirin (Verified Adverse Reaction, Intermediate, states cant take bc of coumadin, 03/18/20) Home Medications Scheduled Atorvastatin Calcium (Atorvastatin Calcium), 20 MG PO DAILY, (Reported) Cholecalciferol (Vitamin D3) (Vitamin D3), 2,000 UNITS PO DAILY, (Reported) Cyanocobalamin (Vitamin B-12) (Vitamin B-12), 1 TAB PO BID, (Reported) Levothyroxine Sodium (Levothyroxine Sodium), 50 MCG PO DAILY, (Reported) Ramipril (Ramipril), 5 MG PO BID, (Reported) Warfarin Sodium (Warfarin Sodium), 3 MG PO 6XWK, (Reported) Warfarin Sodium (Warfarin Sodium), 4 MG PO QWEEK, (Reported) BRAD SANCHEZ MD Jun 26, 2020 11:02
== END ==
LOC: M TMIRPOV 08:48
PROVIDERS: ATTEND Radiology Diagnostic Radiology
DX: Z86.718 Personal history of other venous thrombosis and embolism (principal); I48.91 Unspecified atrial fibrillation; D68.51 Activated protein C resistance; E11.9 Type 2 diabetes mellitus without complications; I10 Essential (primary) hypertension; M19.90 Unspecified osteoarthritis, unspecified site; M54.16 Radiculopathy, lumbar region; Z79.01 Long term (current) use of anticoagulants; Z79.890 Hormone replacement therapy; Z79.899 Other long term (current) drug therapy; Z87.442 Personal history of urinary calculi

== ENCOUNTER → 2020-06-26 | Outpatient (REF) | payer MEDICARE ==
[2020-06-26 13:57] LABS: INR 2.26; PROTHROMBIN TIME 25.5 SECONDS (12.5-14.3)
== END ==
LOC: M SFHCPLAZ 10:20
PROVIDERS: ATTEND Physician Assistant Medical
DX: Z51.81 Encounter for therapeutic drug level monitoring (principal)

== ENCOUNTER → 2020-07-03 | Outpatient (REF) | payer MEDICARE ==
[2020-07-03 10:46] LABS: BASO # 0.1 10^3/uL (0.0-0.2); EOS # 0.1 10^3/uL (0.0-0.5); EOS % 1.3 % (0.0-3.0); HEMOGLOBIN 14.3 g/dl (13.5-17.5); LYMPH # 4.6 10^3/uL (1.5-5.0); LYMPH % 50.1 % (24.0-44.0); MEAN CORPUSCULAR HEMOGLOBIN 34.5 pg (27.0-33.0); MEAN CORPUSCULAR HGB CONC 33.3 g/dl (32.0-36.5); MEAN CORPUSCULAR VOLUME 103.6 fl (80.0-96.0); MONO # 0.7 10^3/uL (0.0-0.8); NEUTROPHILS # 3.6 10^3/uL (1.5-8.5); NEUTROPHILS % 39.4 % (36.0-66.0); PLATELET COUNT, AUTOMATED 311 10^3/uL (150-450); RED BLOOD COUNT 4.15 10^6/uL (4.30-6.10); WHITE BLOOD COUNT 9.2 10^3/uL (4.0-10.0)
[2020-07-03 11:00] LABS: INR 2.51; PROTHROMBIN TIME 27.7 SECONDS (12.5-14.3)
[2020-07-03 11:08] LABS: ALBUMIN 3.7 GM/DL (3.2-5.2); ALT/SGPT 35 U/L (12-78); BLOOD UREA NITROGEN 23 MG/DL (7-18); CALCIUM LEVEL 9.4 MG/DL (8.8-10.2); CARBON DIOXIDE LEVEL 27 MEQ/L (21-32); CHLORIDE LEVEL 105 MEQ/L (98-107); CREATININE FOR GFR 0.78 MG/DL (0.70-1.30); GLOMERULAR FILTRATION RATE > 60.0 (>42); GLUCOSE, FASTING 128 MG/DL (70-100); POTASSIUM SERUM 4.2 MEQ/L (3.5-5.1); SODIUM LEVEL 138 MEQ/L (136-145); TOTAL PROTEIN 7.5 GM/DL (6.4-8.2)
[2020-07-03 11:13] LABS: CHOLESTEROL RISK RATIO 2.283 (<5); FREE T4 1.28 NG/DL (0.76-1.46); THYROID STIMULATING HORMONE 3.28 uIU/ML (0.358-3.740)
[2020-07-03 13:15] LABS: HEMOGLOBIN A1c 6.1 %
== END ==
LOC: M SFHCPLAZ 08:53
PROVIDERS: ATTEND Physician Assistant Medical
DX: E11.9 Type 2 diabetes mellitus without complications (principal); E03.9 Hypothyroidism, unspecified; E53.8 Deficiency of other specified B group vitamins; I26.99 Other pulmonary embolism without acute cor pulmonale

== ENCOUNTER → 2020-07-08 | Outpatient (CLI) | payer MEDICARE ==
[~2020-07-08] MED LIST changes: +ISOVUE-370 76% 100ML VIAL As Ordered ONE
--- NOTE | 2020-07-08 16:53 | REP ---
INDICATION: THROMBUS OF LEFT POPLITEAL VEIN MAIN REG. COMPARISON: 09/28/2017 TECHNIQUE: Precontrast abdomen pelvis imaging with bolus of 100 mL Isovue 370 scanning through the abdomen pelvis with both coronal and sagittal reconstructions. FINDINGS: CT abdomen chronic fibro atelectatic change in the right lower lobe with small amount of loculated pleural fluid and unchanged dating back to the 2018 prior. Some mild cylindrical bronchiectatic change in that right lower lobe and linear fibrotic changes in the left lower lobe and right middle lobe, mild no left effusion. Heart not grossly enlarged. No hiatal hernia there is no hepatomegaly or biliary dilatation. Gallbladder is contracted without definite stones. There is no biliary dilatation and the pancreas. Multiple clips left upper quadrant from prior of splenectomy may be a small splenic remnant or splenule. Adrenal glands intact and unchanged stomach without distention or visible mass. There is atherosclerotic calcifications throughout the aorta without aneurysm. No periaortic, retroperitoneal or mesenteric pathologic sized lymphadenopathy. Lung window review of all CT slices at in the pelvis shows no sign of perforation or free air. No abdominal ascites. Abdominal portion of the colon show only mild diverticulosis in the distal descending colon. Few tiny peripheral cortical cysts of the kidneys noted without solid mass, stone on the left or hydronephrosis there is a calcification appear mid in the lower pole interpolar region on the right, nonobstructing with no hydroureter or ureteral stone evident. Bone windows show degenerative that disc changes and syndesmophytes throughout the lower thoracic spine and facet arthropathy as well as marginal osteophytes since this does not slight smaller in the upper lumbar lower thoracic region no acute compression deformity. Visualized ribs intact. CT pelvis: There is bilateral hip osteoarthritis with severe [id number] appearance on the right with some subchondral cysts acetabular roof and femoral head but no evidence of AVN hip joint space preserved on the left with a small rim osteophyte acetabular roof. The SI joints and iliac bones grossly intact no sacral abnormality. Femoral necks and intertrochanteric regions are unremarkable as are the pubic bones the bladder is poorly filled. Prostate is enlarged indenting the bladder base and elevating it. Few calcifications in the prostate. There is extensive diverticulosis of the the sigmoid and less in the distal left colon but similar to previous study. Nothing acute no pelvic lymphadenopathy inguinal adenopathy or mass there are surgical clips in the region of the right inguinal canal. No hernia. Is a somewhat distended left common femoral and external and internal iliac vein this is not opacified but I certainly could not exclude thrombus. IMPRESSION: Nonobstructing small calculus in a pyramid right lower pole no hydronephrosis renal mass or cyst. No hydroureter or ureteral stone. 1. Bladder without gross mass but not well distended prostate is enlarged and indents the bladder base 2. Distal left colonic and sigmoid diverticulosis without diverticulitis or colitis. 3. Mild distention of the left common femoral, external and common iliac veins. This is the side with known popliteal vein thrombus I could not exclude thrombus but the vessels are not opacified, ultrasound would differentiate. 4. Status post splenectomy with small splenule left upper quadrant unchanged. 5. Chronic degenerative changes of the hips right much greater than left as well as the spine. Nothing acute. No other significant finding. <Electronically signed by Adama Downs > 07/08/20 1639
== END ==
LOC: M RAD 14:55
PROVIDERS: ATTEND Physician Assistant Medical
DX: I82.432 Acute embolism and thrombosis of left popliteal vein (principal)
CPT/HCPCS: 74178; Q9967

== ENCOUNTER → 2020-11-12 | Outpatient (REF) | payer MEDICARE ==
[~2020-11-12] MED LIST changes: -CYAN500T10 PO; -ISOVUE-370 76% 100ML VIAL As Ordered ONE; +VITA500T37 PO
[2020-11-12 10:15] LABS: BASO # 0.1 10^3/uL (0.0-0.2); BASO % 1.1 % (0.0-1.0); EOS # 0.1 10^3/uL (0.0-0.5); EOS % 1.5 % (0.0-3.0); HEMATOCRIT 43.4 % (42.0-52.0); HEMOGLOBIN 14.2 g/dl (13.5-17.5); LYMPH # 4.2 10^3/uL (1.5-5.0); LYMPH % 52.1 % (24.0-44.0); MEAN CORPUSCULAR HEMOGLOBIN 34.3 pg (27.0-33.0); MEAN CORPUSCULAR HGB CONC 32.7 g/dl (32.0-36.5); MEAN CORPUSCULAR VOLUME 104.8 fl (80.0-96.0); MONO # 0.8 10^3/uL (0.0-0.8); MONO % 9.3 % (2.0-8.0); NEUTROPHILS # 2.9 10^3/uL (1.5-8.5); NEUTROPHILS % 35.9 % (36.0-66.0); PLATELET COUNT, AUTOMATED 294 10^3/uL (150-450); RED BLOOD COUNT 4.14 10^6/uL (4.30-6.10); WHITE BLOOD COUNT 8.1 10^3/uL (4.0-10.0)
[2020-11-12 10:41] LABS: INR 2.15; PROTHROMBIN TIME 24.5 SECONDS (12.5-14.3)
[2020-11-12 10:42] LABS: PARTIAL THROMBOPLASTIN TIME 36.9 SECONDS (24.2-38.5)
[2020-11-12 11:11] LABS: ALBUMIN 3.5 GM/DL (3.2-5.2); ALT/SGPT 34 U/L (12-78); BILIRUBIN,TOTAL 1.3 MG/DL (0.2-1.0); BLOOD UREA NITROGEN 15 MG/DL (7-18); CALCIUM LEVEL 9.5 MG/DL (8.8-10.2); CARBON DIOXIDE LEVEL 27 MEQ/L (21-32); CHLORIDE LEVEL 104 MEQ/L (98-107); CREATININE FOR GFR 0.83 MG/DL (0.70-1.30); FREE T4 1.22 NG/DL (0.76-1.46); GLOMERULAR FILTRATION RATE > 60.0 (>42); GLUCOSE, FASTING 134 MG/DL (70-100); SODIUM LEVEL 137 MEQ/L (136-145); TOTAL PROTEIN 7.4 GM/DL (6.4-8.2)
[2020-11-12 12:30] LABS: HEMOGLOBIN A1c 6.2 %
== END ==
LOC: M PLALAB 08:29
PROVIDERS: ATTEND Family Medicine
DX: I10 Essential (primary) hypertension (principal); E03.9 Hypothyroidism, unspecified; E11.9 Type 2 diabetes mellitus without complications; D75.89 Other specified diseases of blood and blood-forming organs; Z12.5 Encounter for screening for malignant neoplasm of prostate; I48.91 Unspecified atrial fibrillation
CPT/HCPCS: 36415; 80053; 83036; 84165; 84439; 84443; 85025; 85610; 85730; 86335; G0103

== ENCOUNTER → 2021-02-17 | Outpatient (REF) | payer MEDICARE ==
[2021-02-17 13:34] LABS: BASO # 0.1 10^3/uL (0.0-0.2); BASO % 0.9 % (0.0-1.0); EOS # 0.1 10^3/uL (0.0-0.5); EOS % 1.2 % (0.0-3.0); HEMATOCRIT 41.5 % (42.0-52.0); LYMPH # 3.9 10^3/uL (1.5-5.0); LYMPH % 50.1 % (24.0-44.0); MEAN CORPUSCULAR HEMOGLOBIN 34.7 pg (27.0-33.0); MEAN CORPUSCULAR HGB CONC 33.7 g/dl (32.0-36.5); MEAN CORPUSCULAR VOLUME 102.7 fl (80.0-96.0); MONO # 0.7 10^3/uL (0.0-0.8); MONO % 8.9 % (2.0-8.0); NEUTROPHILS % 38.6 % (36.0-66.0); PLATELET COUNT, AUTOMATED 269 10^3/uL (150-450); RED BLOOD COUNT 4.04 10^6/uL (4.30-6.10); WHITE BLOOD COUNT 7.8 10^3/uL (4.0-10.0)
[2021-02-17 13:39] LABS: HEMATOCRIT 42.4 % (42.0-52.0)
[2021-02-17 14:25] LABS: ALBUMIN 3.4 GM/DL (3.2-5.2); ALT/SGPT 38 U/L (12-78); BILIRUBIN,TOTAL 1.8 MG/DL (0.2-1.0); BLOOD UREA NITROGEN 18 MG/DL (7-18); CALCIUM LEVEL 8.8 MG/DL (8.8-10.2); CARBON DIOXIDE LEVEL 27 MEQ/L (21-32); CHLORIDE LEVEL 104 MEQ/L (98-107); CHOLESTEROL LEVEL 122 MG/DL (<200); CHOLESTEROL RISK RATIO 2.301 (<5); CREATININE FOR GFR 0.74 MG/DL (0.70-1.30); GLOMERULAR FILTRATION RATE > 60.0 (>42); GLUCOSE, FASTING 110 MG/DL (70-100); HDL CHOLESTEROL 53 MG/DL (>40); LDL CHOLESTEROL 56 MG/DL (<100); NON-HDL-C 69 MG/DL; POTASSIUM SERUM 4.6 MEQ/L (3.5-5.1); PTH INTACT 30.1 PG/ML (18.5-88.0); SODIUM LEVEL 137 MEQ/L (136-145); TOTAL 25(OH) VITAMIN D 41.3 NG/ML (30.0-100.0); TOTAL PROTEIN 7.2 GM/DL (6.4-8.2); TRIGLYCERIDES LEVEL 65 MG/DL (<150); VITAMIN B12 LEVEL 776 PG/ML (247-911)
[2021-02-17 15:08] LABS: HEMOGLOBIN A1c 6.1 %
== END ==
LOC: M PLALAB 08:53
PROVIDERS: ATTEND Family Medicine
DX: E53.8 Deficiency of other specified B group vitamins (principal); E55.9 Vitamin D deficiency, unspecified; E11.9 Type 2 diabetes mellitus without complications; E78.5 Hyperlipidemia, unspecified

== ENCOUNTER → 2021-04-10 | Outpatient (CLI) | payer MEDICARE ==
[2021-04-10 10:58] LABS: INR 2.01; PROTHROMBIN TIME 23.2 SECONDS (12.7-14.5)
== END ==
LOC: M PLALAB 08:45
PROVIDERS: ATTEND Physician Assistant Medical
DX: Z51.81 Encounter for therapeutic drug level monitoring (principal); Z79.01 Long term (current) use of anticoagulants

== ENCOUNTER → 2021-05-23 | Outpatient (CLI) | payer MEDICARE ==
[2021-05-23 11:35] LABS: INR 2.98; PROTHROMBIN TIME 31.3 SECONDS (12.7-14.5)
== END ==
LOC: M PLALAB 08:33
PROVIDERS: ATTEND Physician Assistant Medical
DX: Z51.81 Encounter for therapeutic drug level monitoring (principal); Z79.899 Other long term (current) drug therapy

== ENCOUNTER → 2021-06-10 | Outpatient (CLI) | payer MEDICARE ==
[2021-06-10 10:48] LABS: INR 2.24; PROTHROMBIN TIME 25.2 SECONDS (12.7-14.5)
== END ==
LOC: M PLALAB 08:16
PROVIDERS: ATTEND Physician Assistant Medical
DX: Z51.81 Encounter for therapeutic drug level monitoring (principal); I26.99 Other pulmonary embolism without acute cor pulmonale

== ENCOUNTER → 2021-07-08 | Outpatient (CLI) | payer MEDICARE ==
[2021-07-08 10:41] LABS: INR 2.17; PROTHROMBIN TIME 24.6 SECONDS (12.7-14.5)
== END ==
LOC: M PLALAB 08:13
PROVIDERS: ATTEND Physician Assistant Medical
DX: I26.99 Other pulmonary embolism without acute cor pulmonale (principal)

== ENCOUNTER → 2021-08-04 | Outpatient (CLI) | payer MEDICARE ==
[2021-08-04 17:50] LABS: INR 2.72; PROTHROMBIN TIME 29.2 SECONDS (12.7-14.5)
== END ==
LOC: M PLALAB 15:53
PROVIDERS: ATTEND Physician Assistant Medical
DX: Z51.81 Encounter for therapeutic drug level monitoring (principal); I26.99 Other pulmonary embolism without acute cor pulmonale

== ENCOUNTER → 2021-09-01 | Outpatient (CLI) | payer MEDICARE ==
[2021-09-01 10:31] LABS: INR 2.43; PROTHROMBIN TIME 26.8 SECONDS (12.7-14.5)
== END ==
LOC: M PLALAB 08:53
PROVIDERS: ATTEND Physician Assistant Medical
DX: I26.99 Other pulmonary embolism without acute cor pulmonale (principal)

== ENCOUNTER → 2021-10-02 | Outpatient (CLI) | payer MEDICARE ==
[2021-10-02 10:59] LABS: BASO # 0.1 10^3/uL (0.0-0.2); BASO % 1.1 % (0.0-1.0); EOS # 0.1 10^3/uL (0.0-0.5); EOS % 1.7 % (0.0-3.0); HEMATOCRIT 43.6 % (42.0-52.0); HEMOGLOBIN 14.3 g/dl (13.5-17.5); LYMPH # 4.5 10^3/uL (1.5-5.0); LYMPH % 53.7 % (24.0-44.0); MEAN CORPUSCULAR HEMOGLOBIN 34.3 pg (27.0-33.0); MEAN CORPUSCULAR HGB CONC 32.8 g/dl (32.0-36.5); MEAN CORPUSCULAR VOLUME 104.6 fl (80.0-96.0); MONO # 0.7 10^3/uL (0.0-0.8); MONO % 8.4 % (2.0-8.0); NEUTROPHILS # 2.9 10^3/uL (1.5-8.5); PLATELET COUNT, AUTOMATED 288 10^3/uL (150-450); RED BLOOD COUNT 4.17 10^6/uL (4.30-6.10); WHITE BLOOD COUNT 8.3 10^3/uL (4.0-10.0)
[2021-10-02 13:23] LABS: ALBUMIN 3.8 GM/DL (3.2-5.2); ALT/SGPT 44 U/L (12-78); BILIRUBIN,TOTAL 0.9 MG/DL (0.2-1.0); BLOOD UREA NITROGEN 30 MG/DL (7-18); CALCIUM LEVEL 9.2 MG/DL (8.8-10.2); CHLORIDE LEVEL 109 MEQ/L (98-107); CHOLESTEROL LEVEL 130 MG/DL (<200); CHOLESTEROL RISK RATIO 2.363 (<5); CREATININE FOR GFR 0.88 MG/DL (0.70-1.30); FREE T4 1.25 NG/DL (0.76-1.46); GLOMERULAR FILTRATION RATE > 60.0 (>42); GLUCOSE, FASTING 146 MG/DL (70-100); HDL CHOLESTEROL 55 MG/DL (>40); LDL CHOLESTEROL 62 MG/DL (<100); MAGNESIUM LEVEL 2.3 MG/DL (1.8-2.4); NON-HDL-C 75 MG/DL; NT-PRO BNP 118 PG/ML (<450); POTASSIUM SERUM 5.4 MEQ/L (3.5-5.1); SODIUM LEVEL 142 MEQ/L (136-145); TOTAL PROTEIN 7.7 GM/DL (6.4-8.2); TRIGLYCERIDES LEVEL 66 MG/DL (<150)
[2021-10-02 13:38] LABS: CARBON DIOXIDE LEVEL 26 MEQ/L (21-32)
[2021-10-02 13:46] LABS: HEMOGLOBIN A1c 6.1 %
[2021-10-03 12:22] LABS: PTH INTACT 40.3 PG/ML (18.5-88.0); TOTAL 25(OH) VITAMIN D 41.9 NG/ML (30.0-100.0)
== END ==
LOC: M PLALAB 08:13
PROVIDERS: ATTEND Family Medicine
DX: I10 Essential (primary) hypertension (principal); E03.9 Hypothyroidism, unspecified; E78.5 Hyperlipidemia, unspecified; I26.99 Other pulmonary embolism without acute cor pulmonale; Z12.5 Encounter for screening for malignant neoplasm of prostate
CPT/HCPCS: 36415; 80053; 80061; 82306; 83036; 83525; 83735; 83880; 83970; 84439; 84443; 85025; G0103

== ENCOUNTER → 2021-10-02 | Outpatient (CLI) | payer MEDICARE ==
[2021-10-02 11:08] LABS: INR 2.07; PROTHROMBIN TIME 23.7 SECONDS (12.7-14.5)
== END ==
LOC: M PLALAB 08:16
PROVIDERS: ATTEND Physician Assistant Medical
DX: I26.99 Other pulmonary embolism without acute cor pulmonale (principal)

== ENCOUNTER → 2021-10-28 | Outpatient (CLI) | payer MEDICARE ==
[2021-10-28 11:03] LABS: FREE T4 1.25 NG/DL (0.76-1.46); THYROID STIMULATING HORMONE 2.87 uIU/ML (0.358-3.740)
== END ==
LOC: M PLALAB 08:58
PROVIDERS: ATTEND Family Medicine
DX: I10 Essential (primary) hypertension (principal); E03.9 Hypothyroidism, unspecified; E78.5 Hyperlipidemia, unspecified; I26.99 Other pulmonary embolism without acute cor pulmonale; Z12.5 Encounter for screening for malignant neoplasm of prostate

== ENCOUNTER → 2021-12-04 | Outpatient (CLI) | payer MEDICARE ==
[~2021-12-04] MED LIST changes: -D31000TA2 PO; +VITA100093 PO
[2021-12-04 10:29] LABS: BASO # 0.1 10^3/uL (0.0-0.2); BASO % 1.4 % (0.0-1.0); EOS # 0.1 10^3/uL (0.0-0.5); EOS % 1.3 % (0.0-3.0); HEMATOCRIT 40.6 % (42.0-52.0); HEMOGLOBIN 13.7 g/dl (13.5-17.5); LYMPH # 3.5 10^3/uL (1.5-5.0); LYMPH % 49.4 % (24.0-44.0); MEAN CORPUSCULAR HEMOGLOBIN 34.8 pg (27.0-33.0); MEAN CORPUSCULAR HGB CONC 33.7 g/dl (32.0-36.5); MONO # 0.7 10^3/uL (0.0-0.8); MONO % 9.2 % (2.0-8.0); NEUTROPHILS # 2.7 10^3/uL (1.5-8.5); NEUTROPHILS % 38.4 % (36.0-66.0); PLATELET COUNT, AUTOMATED 279 10^3/uL (150-450); RED BLOOD COUNT 3.94 10^6/uL (4.30-6.10); WHITE BLOOD COUNT 7.1 10^3/uL (4.0-10.0)
[2021-12-04 10:31] LABS: HEMATOCRIT 39.8 % (42.0-52.0)
[2021-12-04 10:44] LABS: INR 2.19; PROTHROMBIN TIME 24.8 SECONDS (12.7-14.5)
[2021-12-04 11:39] LABS: ALBUMIN 3.5 GM/DL (3.2-5.2); ALT/SGPT 45 U/L (12-78); BILIRUBIN,TOTAL 1.2 MG/DL (0.2-1.0); BLOOD UREA NITROGEN 22 MG/DL (7-18); CALCIUM LEVEL 9.2 MG/DL (8.8-10.2); CARBON DIOXIDE LEVEL 26 MEQ/L (21-32); CHLORIDE LEVEL 108 MEQ/L (98-107); CREATININE FOR GFR 0.76 MG/DL (0.70-1.30); FERRITIN 440 NG/ML (26-388); GLOMERULAR FILTRATION RATE > 60.0 (>42); GLUCOSE, FASTING 126 MG/DL (70-100); POTASSIUM SERUM 4.8 MEQ/L (3.5-5.1); SODIUM LEVEL 139 MEQ/L (136-145); VITAMIN B12 LEVEL 928 PG/ML (247-911)
== END ==
LOC: M PLALAB 09:00
PROVIDERS: ATTEND Family Medicine
DX: E53.8 Deficiency of other specified B group vitamins (principal); I26.99 Other pulmonary embolism without acute cor pulmonale; E11.9 Type 2 diabetes mellitus without complications; E55.9 Vitamin D deficiency, unspecified

== ENCOUNTER → 2022-01-28 | Outpatient (CLI) | payer MEDICARE ==
[2022-01-28 13:36] LABS: INR 2.98; PROTHROMBIN TIME 31.3 SECONDS (12.7-14.5)
== END ==
LOC: M PLALAB 10:48
PROVIDERS: ATTEND Family Medicine
DX: Z86.718 Personal history of other venous thrombosis and embolism (principal)

== ENCOUNTER 2022-02-17 06:48 | Emergency (ER) | payer MEDICARE ==
[~2022-02-17] VITALS: Ht 180.3 cm; Wt 93.3 kg
[2022-02-17 06:48] VITALS: BP 151/81
[2022-02-17 07:37] LABS: BILIRUBIN, URINE MANUAL NEGATIVE (NEGATIVE); GLUCOSE, URINE (UA) MANUAL NEGATIVE (NEGATIVE); KETONE, URINE MANUAL NEGATIVE (NEGATIVE); UROBILINOGEN, URINE MANUAL NORMAL (NORMAL)
[2022-02-17 07:44] LABS: BACTERIA, URINE LARGE AMOUNT; HYALINE CAST, URINE NONE SEEN /lpf (0-1); RBC, URINE TNTC /hpf (0-3); SQUAMOUS EPITHELIAL CELL URINE NONE SEEN /hpf (SMALL AMT)
[2022-02-17 08:59] LABS: BASO # 0.1 10^3/uL (0.0-0.2); BASO % 0.8 % (0.0-1.0); EOS % 0.1 % (0.0-3.0); HEMOGLOBIN 14.8 g/dl (13.5-17.5); LYMPH # 1.7 10^3/uL (1.5-5.0); LYMPH % 17.4 % (24.0-44.0); MEAN CORPUSCULAR HEMOGLOBIN 35.3 pg (27.0-33.0); MEAN CORPUSCULAR HGB CONC 33.6 g/dl (32.0-36.5); MONO # 0.7 10^3/uL (0.0-0.8); MONO % 6.8 % (2.0-8.0); NEUTROPHILS # 7.1 10^3/uL (1.5-8.5); NEUTROPHILS % 74.5 % (36.0-66.0); PLATELET COUNT, AUTOMATED 275 10^3/uL (150-450); RED BLOOD COUNT 4.19 10^6/uL (4.30-6.10); WHITE BLOOD COUNT 9.5 10^3/uL (4.0-10.0)
[2022-02-17] MEDS ORDERED: CEPHALEXIN 500 MG CAP PO ONE (10:00)
[2022-02-17] MEDS ORDERED: TAMSULOSIN 0.4 MG CAP PO ONE (10:00)
[2022-02-17] MEDS ORDERED: CEPH500C PO (10:12)
[2022-02-17] MEDS ORDERED: HYDR-3713 PO (10:12)
[2022-02-17] MEDS ORDERED: FLOM0.4C39 PO (10:12)
[2022-02-17 10:48] LABS: INR 2.46
== END 2022-02-17 10:32 | disposition home or self-care (01) ==
LOC: M ED 06:48
DX: N20.1 Calculus of ureter (principal); N13.30 Unspecified hydronephrosis; I10 Essential (primary) hypertension; E78.5 Hyperlipidemia, unspecified; E03.9 Hypothyroidism, unspecified; Z79.01 Long term (current) use of anticoagulants; Z79.890 Hormone replacement therapy; Z79.899 Other long term (current) drug therapy; Z86.718 Personal history of other venous thrombosis and embolism; Z90.81 Acquired absence of spleen

== ENCOUNTER → 2022-02-23 | Outpatient (CLI) | payer MEDICARE ==
[~2022-02-23] MED LIST changes: +CEPH500C PO; +FLOM0.4C39 PO; +HYDR-3713 PO
[2022-02-23 13:33] LABS: INR 2.82
[2022-02-23 13:34] LABS: PARTIAL THROMBOPLASTIN TIME 33.4 SECONDS (25.9-37.0)
== END ==
LOC: M PLALAB 09:42
PROVIDERS: ATTEND Family Medicine
DX: N20.1 Calculus of ureter (principal); Z79.01 Long term (current) use of anticoagulants; Z86.718 Personal history of other venous thrombosis and embolism

== ENCOUNTER → 2022-04-06 | Outpatient (CLI) | payer MEDICARE ==
[2022-04-06 16:06] LABS: INR 2.58; PROTHROMBIN TIME 28.1 SECONDS (12.7-14.5)
== END ==
LOC: M PLALAB 13:16
PROVIDERS: ATTEND Physician Assistant Medical
DX: Z51.81 Encounter for therapeutic drug level monitoring (principal); Z79.899 Other long term (current) drug therapy

== ENCOUNTER → 2022-05-26 | Outpatient (CLI) | payer MEDICARE ==
[2022-05-26 16:06] LABS: BASO # 0.1 10^3/uL (0.0-0.2); BASO % 1.4 % (0.0-1.0); EOS # 0.1 10^3/uL (0.0-0.5); HEMATOCRIT 40.4 % (42.0-52.0); HEMOGLOBIN 13.9 g/dl (13.5-17.5); LYMPH # 3.6 10^3/uL (1.5-5.0); LYMPH % 49.6 % (24.0-44.0); MEAN CORPUSCULAR HEMOGLOBIN 36.6 pg (27.0-33.0); MEAN CORPUSCULAR HGB CONC 34.4 g/dl (32.0-36.5); MEAN CORPUSCULAR VOLUME 106.3 fl (80.0-96.0); MONO # 0.7 10^3/uL (0.0-0.8); MONO % 9.5 % (2.0-8.0); NEUTROPHILS # 2.7 10^3/uL (1.5-8.5); NEUTROPHILS % 38.2 % (36.0-66.0); PLATELET COUNT, AUTOMATED 276 10^3/uL (150-450); WHITE BLOOD COUNT 7.2 10^3/uL (4.0-10.0)
[2022-05-26 16:19] LABS: INR 2.13; PROTHROMBIN TIME 24.2 SECONDS (12.7-14.5)
[2022-05-26 16:42] LABS: ALBUMIN 3.5 GM/DL (3.2-5.2); ALT/SGPT 35 U/L (12-78); BILIRUBIN,TOTAL 1.4 MG/DL (0.2-1.0); BLOOD UREA NITROGEN 16 MG/DL (7-18); CALCIUM LEVEL 9.4 MG/DL (8.8-10.2); CARBON DIOXIDE LEVEL 28 MEQ/L (21-32); CHLORIDE LEVEL 104 MEQ/L (98-107); CHOLESTEROL LEVEL 129 MG/DL (<200); CHOLESTEROL RISK RATIO 2.388 (<5); CREATININE FOR GFR 0.78 MG/DL (0.70-1.30); GLOMERULAR FILTRATION RATE > 60.0 (>42); GLUCOSE, FASTING 136 MG/DL (70-100); HDL CHOLESTEROL 54 MG/DL (>40); LDL CHOLESTEROL 60 MG/DL (<100); NON-HDL-C 75 MG/DL; POTASSIUM SERUM 4.8 MEQ/L (3.5-5.1); SODIUM LEVEL 135 MEQ/L (136-145); TOTAL PROTEIN 7.5 GM/DL (6.4-8.2); TRIGLYCERIDES LEVEL 77 MG/DL (<150)
[2022-05-26 19:47] LABS: HEMOGLOBIN A1c 6.1 %
== END ==
LOC: M PLALAB 12:45
PROVIDERS: ATTEND Family Medicine
DX: Z51.81 Encounter for therapeutic drug level monitoring (principal); Z79.899 Other long term (current) drug therapy; E53.8 Deficiency of other specified B group vitamins; E11.9 Type 2 diabetes mellitus without complications

== ENCOUNTER → 2022-07-01 | Outpatient (CLI) | payer MEDICARE ==
[2022-07-01 14:20] LABS: INR 2.65; PROTHROMBIN TIME 28.7 SECONDS (12.5-14.5)
== END ==
LOC: M PLALAB 09:44
PROVIDERS: ATTEND Family Medicine
DX: Z51.81 Encounter for therapeutic drug level monitoring (principal); Z79.01 Long term (current) use of anticoagulants

== ENCOUNTER → 2022-08-07 | Outpatient (CLI) | payer MEDICARE ==
[2022-08-07 16:40] LABS: MAU/CREAT RATIO 6.9 MCG/MG (0.0-30.0)
== END ==
LOC: M PLALAB 14:22
PROVIDERS: ATTEND Family Medicine
DX: E11.9 Type 2 diabetes mellitus without complications (principal)

== ENCOUNTER → 2022-10-13 | Outpatient (CLI) | payer MEDICARE ==
[2022-10-13 17:27] LABS: BASO # 0.1 10^3/uL (0.0-0.2); BASO % 0.9 % (0.0-1.0); EOS # 0.1 10^3/uL (0.0-0.5); EOS % 1.3 % (0.0-3.0); HEMATOCRIT 41.3 % (42.0-52.0); HEMOGLOBIN 13.8 g/dl (13.5-17.5); LYMPH # 4.4 10^3/uL (1.5-5.0); LYMPH % 51.6 % (24.0-44.0); MEAN CORPUSCULAR HEMOGLOBIN 35.4 pg (27.0-33.0); MEAN CORPUSCULAR HGB CONC 33.4 g/dl (32.0-36.5); MEAN CORPUSCULAR VOLUME 105.9 fl (80.0-96.0); MONO # 0.8 10^3/uL (0.0-0.8); NEUTROPHILS # 3.2 10^3/uL (1.5-8.5); NEUTROPHILS % 37.1 % (36.0-66.0); PLATELET COUNT, AUTOMATED 272 10^3/uL (150-450); WHITE BLOOD COUNT 8.5 10^3/uL (4.0-10.0)
[2022-10-13 17:41] LABS: INR 2.81
[2022-10-13 18:06] LABS: ALBUMIN 3.6 G/DL (3.2-5.2); ALKALINE PHOSPHATASE 81 U/L (46-116); ALT/SGPT 34 U/L (7.0-40); AST/SGOT 25 U/L (<34); BILIRUBIN,TOTAL 1.5 MG/DL (0.3-1.2); BLOOD UREA NITROGEN 21 MG/DL (9-23); CALCIUM LEVEL 9.3 MG/DL (8.3-10.6); CARBON DIOXIDE LEVEL 29 MMOL/L (20-31); CHLORIDE LEVEL 103 MMOL/L (98-107); CREATININE FOR GFR 0.61 MG/DL (0.70-1.30); GLOMERULAR FILTRATION RATE > 60.0 (>42); GLUCOSE, FASTING 161 MG/DL (74-106); MAGNESIUM LEVEL 1.9 MG/DL (1.8-2.4); POTASSIUM SERUM 4.6 MMOL/L (3.5-5.1); SODIUM LEVEL 140 MMOL/L (136-145); THYROID STIMULATING HORMONE 3.611 uIU/ML (0.55-4.78); TOTAL PROTEIN 7.2 G/DL (5.7-8.2); VITAMIN B12 LEVEL 1017 PG/ML (211-911)
[2022-10-13 20:26] LABS: HEMOGLOBIN A1c 5.8 % (4.0-6.0)
== END ==
LOC: M PLALAB 14:42
PROVIDERS: ATTEND Family Medicine
DX: E03.9 Hypothyroidism, unspecified (principal); I10 Essential (primary) hypertension; I48.91 Unspecified atrial fibrillation; E55.9 Vitamin D deficiency, unspecified; E11.9 Type 2 diabetes mellitus without complications

== ENCOUNTER → 2023-05-04 | Outpatient (CLI) | payer MEDICARE ==
[2023-05-04 12:35] LABS: INR 2.4; PROTHROMBIN TIME 25.6 SECONDS (12.5-14.5)
[2023-05-04 12:36] LABS: PARTIAL THROMBOPLASTIN TIME 34.4 SECONDS (24.8-34.2)
[2023-05-04 13:51] LABS: HEPATITIS C VIRUS ABY INDEX > 11.00 INDEX (<0.8)
== END ==
LOC: M WUC 09:49
PROVIDERS: ATTEND Family Medicine
DX: K76.0 Fatty (change of) liver, not elsewhere classified (principal); I10 Essential (primary) hypertension; E53.8 Deficiency of other specified B group vitamins; E11.9 Type 2 diabetes mellitus without complications; E78.5 Hyperlipidemia, unspecified; Z90.81 Acquired absence of spleen; D75.89 Other specified diseases of blood and blood-forming organs; Z86.718 Personal history of other venous thrombosis and embolism

== ENCOUNTER → 2023-07-12 | Outpatient (CLI) | payer MEDICARE ==
[2023-07-12 13:54] LABS: BASO # 0.1 10^3/uL (0.0-0.2); BASO % 1.3 % (0.0-1.0); EOS # 0.1 10^3/uL (0.0-0.5); EOS % 0.9 % (0.0-3.0); HEMATOCRIT 41.3 % (42.0-52.0); LYMPH # 3.7 10^3/uL (1.5-5.0); LYMPH % 46.8 % (24.0-44.0); MEAN CORPUSCULAR HEMOGLOBIN 35.7 pg (27.0-33.0); MEAN CORPUSCULAR HGB CONC 33.9 g/dl (32.0-36.5); MEAN CORPUSCULAR VOLUME 105.4 fl (80.0-96.0); MONO # 0.6 10^3/uL (0.0-0.8); MONO % 7.4 % (2.0-8.0); NEUTROPHILS # 3.5 10^3/uL (1.5-8.5); NEUTROPHILS % 43.5 % (36.0-66.0); PLATELET COUNT, AUTOMATED 278 10^3/uL (150-450); RED BLOOD COUNT 3.92 10^6/uL (4.30-6.10)
[2023-07-12 14:13] LABS: ALBUMIN 3.6 G/DL (3.2-5.2); ALKALINE PHOSPHATASE 93 U/L (46-116); ALT/SGPT 31 U/L (7.0-40); AST/SGOT 19 U/L (<34); BILIRUBIN,TOTAL 1.5 MG/DL (0.3-1.2); BLOOD UREA NITROGEN 20 MG/DL (9-23); CALCIUM LEVEL 9.2 MG/DL (8.3-10.6); CARBON DIOXIDE LEVEL 28 MMOL/L (20-31); CHLORIDE LEVEL 103 MMOL/L (98-107); CREATININE FOR GFR 0.67 MG/DL (0.70-1.30); GLOMERULAR FILTRATION RATE > 60.0 (>35); GLUCOSE, FASTING 159 MG/DL (74-106); POTASSIUM SERUM 4.6 MMOL/L (3.5-5.1); SODIUM LEVEL 137 MMOL/L (136-145)
[2023-07-12 14:14] LABS: FERRITIN 396.9 NG/ML (10.5-307.3); FREE T4 1.19 NG/DL (0.89-1.76)
[2023-07-12 14:15] LABS: THYROID STIMULATING HORMONE 3.569 uIU/ML (0.55-4.78)
[2023-07-12 14:19] LABS: INR 2.65; PROTHROMBIN TIME 27.3 SECONDS (12.5-14.5)
== END ==
LOC: M PLALAB 10:33
PROVIDERS: ATTEND Family Medicine
DX: E03.9 Hypothyroidism, unspecified (principal); I10 Essential (primary) hypertension; Z86.718 Personal history of other venous thrombosis and embolism; E11.9 Type 2 diabetes mellitus without complications

== ENCOUNTER → 2023-08-12 | Outpatient (REF) | payer MEDICARE | LOC: M SFHCPLAZ 10:55 | PROVIDERS: ATTEND Family Medicine | DX: Z51.81 Encounter for therapeutic drug level monitoring (principal) ==

== ENCOUNTER → 2023-08-20 | Outpatient (CLI) | payer MEDICARE | LOC: M WHC 07:28 | PROVIDERS: ATTEND Family Medicine | DX: K72.10 Chronic hepatic failure without coma (principal) ==

== ENCOUNTER → 2023-10-13 | Outpatient (CLI) | payer MEDICARE ==
[2023-10-13 10:28] LABS: INR 2.96; PROTHROMBIN TIME 29.7 SECONDS (12.5-14.5)
[2023-10-13 10:42] LABS: HEMOGLOBIN A1c 6.3 % (4.0-6.0)
[2023-10-13 10:51] LABS: PSA SCREENING 1.48 NG/ML (< 4.00)
[2023-10-13 10:56] LABS: ALBUMIN 3.6 G/DL (3.2-5.2); ALKALINE PHOSPHATASE 90 U/L (46-116); ALT/SGPT 36 U/L (7.0-40); AST/SGOT 20 U/L (<34); BILIRUBIN,TOTAL 1.6 MG/DL (0.3-1.2); BLOOD UREA NITROGEN 14 MG/DL (9-23); CALCIUM LEVEL 9.2 MG/DL (8.3-10.6); CARBON DIOXIDE LEVEL 29 MMOL/L (20-31); CHLORIDE LEVEL 106 MMOL/L (98-107); CHOLESTEROL LEVEL 126 MG/DL (<200); CHOLESTEROL RISK RATIO 2.38 (<5); CREATININE FOR GFR 0.75 MG/DL (0.70-1.30); GLOMERULAR FILTRATION RATE > 60.0 (>35); GLUCOSE, FASTING 143 MG/DL (74-106); HDL CHOLESTEROL 52.9 MG/DL (>40); LDL CHOLESTEROL 60.5 MG/DL (<100); NON-HDL-C 73.1 MG/DL; POTASSIUM SERUM 5.1 MMOL/L (3.5-5.1); SODIUM LEVEL 139 MMOL/L (136-145); TOTAL PROTEIN 6.9 G/DL (5.7-8.2); TRIGLYCERIDES LEVEL 63 MG/DL (<150)
[2023-10-13 10:57] LABS: VITAMIN B12 LEVEL 1789 PG/ML (211-911)
== END ==
LOC: M PLALAB 08:42
PROVIDERS: ATTEND Family Medicine
DX: Z51.81 Encounter for therapeutic drug level monitoring (principal); K72.10 Chronic hepatic failure without coma; E53.8 Deficiency of other specified B group vitamins; E11.9 Type 2 diabetes mellitus without complications; Z12.5 Encounter for screening for malignant neoplasm of prostate
CPT/HCPCS: 36415; 80053; 80061; 81256; 82607; 83036; 85610; G0103

== ENCOUNTER → 2023-12-16 | Outpatient (CLI) | payer MEDICARE | LOC: M PLAIMG 11:14 | PROVIDERS: ATTEND Family Medicine | DX: K59.09 Other constipation (principal) ==

== ENCOUNTER → 2024-01-20 | Outpatient (CLI) | payer MEDICARE ==
[~2024-01-20] MED LIST changes: -RAMI1CAP24 PO; +RAMI5CAP60 PO
[2024-01-20 13:15] LABS: BASO # 0.1 10^3/uL (0.0-0.2); BASO % 1.1 % (0.0-1.0); EOS # 0.1 10^3/uL (0.0-0.5); HEMATOCRIT 39.6 % (42.0-52.0); HEMOGLOBIN 13.6 g/dl (13.5-17.5); LYMPH # 4.4 10^3/uL (1.5-5.0); LYMPH % 53.2 % (24.0-44.0); MEAN CORPUSCULAR HEMOGLOBIN 36.3 pg (27.0-33.0); MEAN CORPUSCULAR HGB CONC 34.3 g/dl (32.0-36.5); MEAN CORPUSCULAR VOLUME 105.6 fl (80.0-96.0); MONO # 0.7 10^3/uL (0.0-0.8); MONO % 7.9 % (2.0-8.0); NEUTROPHILS % 36.7 % (36.0-66.0); PLATELET COUNT, AUTOMATED 267 10^3/uL (150-450); RED BLOOD COUNT 3.75 10^6/uL (4.30-6.10); WHITE BLOOD COUNT 8.2 10^3/uL (4.0-10.0)
[2024-01-20 13:20] LABS: ALBUMIN 3.5 G/DL (3.2-5.2); ALKALINE PHOSPHATASE 84 U/L (46-116); ALT/SGPT 28 U/L (7.0-40); AST/SGOT 16 U/L (<34); BILIRUBIN,TOTAL 1.7 MG/DL (0.3-1.2); BLOOD UREA NITROGEN 18 MG/DL (9-23); CALCIUM LEVEL 9.4 MG/DL (8.3-10.6); CARBON DIOXIDE LEVEL 26 MMOL/L (20-31); CHLORIDE LEVEL 107 MMOL/L (98-107); CREATININE FOR GFR 0.73 MG/DL (0.70-1.30); GLOMERULAR FILTRATION RATE > 60.0 (>35); GLUCOSE, FASTING 152 MG/DL (74-106); POTASSIUM SERUM 4.6 MMOL/L (3.5-5.1); SODIUM LEVEL 140 MMOL/L (136-145); TOTAL PROTEIN 6.5 G/DL (5.7-8.2)
[2024-01-20 13:24] LABS: THYROID STIMULATING HORMONE 4.103 uIU/ML (0.55-4.78)
[2024-01-20 13:25] LABS: FERRITIN 365.1 NG/ML (10.5-307.3); TOTAL 25(OH) VITAMIN D 42.9 NG/ML (20.0-100.0)
[2024-01-20 13:27] LABS: FREE T4 1.29 NG/DL (0.89-1.76)
[2024-01-20 13:28] LABS: PTH INTACT 37.6 PG/ML (18.5-88.0)
[2024-01-20 13:39] LABS: INR 2.47; PROTHROMBIN TIME 25.8 SECONDS (12.5-14.5)
[2024-01-20 13:49] LABS: HEMOGLOBIN A1c 6.4 % (4.0-6.0)
== END ==
LOC: M PLALAB 09:05
PROVIDERS: ATTEND Family Medicine
DX: E53.8 Deficiency of other specified B group vitamins (principal); I10 Essential (primary) hypertension; E55.9 Vitamin D deficiency, unspecified; E11.9 Type 2 diabetes mellitus without complications; E03.9 Hypothyroidism, unspecified; Z79.01 Long term (current) use of anticoagulants; Z86.718 Personal history of other venous thrombosis and embolism

== ENCOUNTER → 2024-01-25 | Outpatient (REF) | payer MEDICARE | LOC: M SFHCPLAZ 17:15 | PROVIDERS: ATTEND Family Medicine | DX: Z79.01 Long term (current) use of anticoagulants (principal); I10 Essential (primary) hypertension; E11.9 Type 2 diabetes mellitus without complications; E03.9 Hypothyroidism, unspecified; E55.9 Vitamin D deficiency, unspecified; E53.8 Deficiency of other specified B group vitamins ==

== ENCOUNTER 2024-04-30 23:23 | Emergency (ER) | payer MEDICARE ==
[~2024-04-30] VITALS: Ht 182.9 cm; Wt 94.1 kg
[2024-04-30 23:34] VITALS: TEMP 97.5
[2024-04-30 23:56] LABS: BASO # 0.1 10^3/uL (0.0-0.2); BASO % 1.1 % (0.0-1.0); EOS # 0.1 10^3/uL (0.0-0.5); EOS % 0.7 % (0.0-3.0); HEMATOCRIT 38.1 % (42.0-52.0); HEMOGLOBIN 13.1 g/dl (13.5-17.5); LYMPH # 1.9 10^3/uL (1.5-5.0); LYMPH % 25.5 % (24.0-44.0); MEAN CORPUSCULAR HEMOGLOBIN 36.1 pg (27.0-33.0); MEAN CORPUSCULAR HGB CONC 34.4 g/dl (32.0-36.5); MONO # 0.7 10^3/uL (0.0-0.8); MONO % 9.3 % (2.0-8.0); NEUTROPHILS # 4.7 10^3/uL (1.5-8.5); NEUTROPHILS % 63.1 % (36.0-66.0); PLATELET COUNT, AUTOMATED 231 10^3/uL (150-450); RED BLOOD COUNT 3.63 10^6/uL (4.30-6.10); WHITE BLOOD COUNT 7.5 10^3/uL (4.0-10.0)
[2024-05-01 00:56] LABS: CK-MB VALUE MASS < 1.0 NG/ML (<3.6)
[2024-05-01 00:57] LABS: ETHYL ALCOHOL (ETHANOL) 0.006 % (0.000-0.010)
[2024-05-01 00:58] LABS: ALBUMIN 3.2 G/DL (3.2-5.2); ALKALINE PHOSPHATASE 93 U/L (46-116); ALT/SGPT 23 U/L (7.0-40); AST/SGOT 13 U/L (<34); BILIRUBIN,TOTAL 1.3 MG/DL (0.3-1.2); BLOOD UREA NITROGEN 19 MG/DL (9-23); CALCIUM LEVEL 8.8 MG/DL (8.3-10.6); CARBON DIOXIDE LEVEL 25 MMOL/L (20-31); CHLORIDE LEVEL 107 MMOL/L (98-107); CPK CREATINE PHOSPHOKINASE 67 U/L (46-171); CREATININE FOR GFR 0.85 MG/DL (0.70-1.30); GLOMERULAR FILTRATION RATE > 60.0 (>35); GLUCOSE, FASTING 190 MG/DL (74-106); MB/CK RELATIVE INDEX 1.49 (< OR =4); POTASSIUM SERUM 4.7 MMOL/L (3.5-5.1); SODIUM LEVEL 136 MMOL/L (136-145); TOTAL PROTEIN 6.5 G/DL (5.7-8.2)
[2024-05-01 01:00] LABS: THYROID STIMULATING HORMONE 4.635 uIU/ML (0.55-4.78)
[2024-05-01] MEDS ORDERED: ISOVUE-370 76% 100ML VIAL As Ordered ONE (01:37)
[2024-05-01 01:38] LABS: INR 3.2; PARTIAL THROMBOPLASTIN TIME 34.8 SECONDS (24.8-34.2); PROTHROMBIN TIME 31.6 SECONDS (12.5-14.5)
[2024-05-01] MEDS: ONDANSETRON 4MG 2ML VIAL IV ONE (01:38)
[2024-05-01] MEDS: NS 500 ML IV ONE (01:38)
[2024-05-01 03:03] LABS: CK-MB VALUE MASS 1.1 NG/ML (<3.6)
[2024-05-01 03:13] LABS: AMPHETAMINES LEVEL URINE NEGATIVE (NEGATIVE); BARBITURATES URINE NEGATIVE (NEGATIVE); BENZODIAZEPINES URINE NEGATIVE (NEGATIVE); CANNABINOIDS URINE NEGATIVE (NEGATIVE); COCAINE METABOLITE URINE NEGATIVE (NEGATIVE); METHADONE URINE NEGATIVE (NEGATIVE); OPIATES URINE NEGATIVE (NEGATIVE); PHENCYCLIDINE URINE NEGATIVE (NEGATIVE)
[2024-05-01 03:21] LABS: MB/CK RELATIVE INDEX 0.75 (< OR =4)
[2024-05-01 04:28] VITALS: BP 146/72; O2SAT 95
== END 2024-05-01 05:10 | disposition home or self-care (01) ==
LOC: EDBD 23:23 → M ED 23:23
DX: I95.1 Orthostatic hypotension (principal); J84.10 Pulmonary fibrosis, unspecified; I25.10 Atherosclerotic heart disease of native coronary artery without angina pectoris; R55 Syncope and collapse; I48.91 Unspecified atrial fibrillation; E11.9 Type 2 diabetes mellitus without complications; H81.10 Benign paroxysmal vertigo, unspecified ear; I10 Essential (primary) hypertension; E03.9 Hypothyroidism, unspecified; Z86.718 Personal history of other venous thrombosis and embolism; Z79.01 Long term (current) use of anticoagulants; Z79.899 Other long term (current) drug therapy; Z88.8 Allergy status to other drugs, medicaments and biological substances
CPT/HCPCS: 70450; 71045; 71275; 74174; 80053; 80307; 81001; 82077; 82550; 82553; 83605; 84443; 84484; 85025; 85610; 85730; 93005; 93041; 94760; 96361; 96374; 99285; J2405; Q9967

== ENCOUNTER → 2024-07-04 | Outpatient (CLI) | payer MEDICARE ==
[2024-07-04 15:27] LABS: HEMATOCRIT 41.7 % (42.0-52.0)
[2024-07-04 15:29] LABS: BASO # 0.1 10^3/uL (0.0-0.2); BASO % 1.2 % (0.0-1.0); EOS # 0.1 10^3/uL (0.0-0.5); EOS % 0.9 % (0.0-3.0); HEMATOCRIT 41.3 % (42.0-52.0); LYMPH # 4.4 10^3/uL (1.5-5.0); LYMPH % 57.9 % (24.0-44.0); MEAN CORPUSCULAR HEMOGLOBIN 35.6 pg (27.0-33.0); MEAN CORPUSCULAR HGB CONC 33.9 g/dl (32.0-36.5); MEAN CORPUSCULAR VOLUME 105.1 fl (80.0-96.0); MONO # 0.7 10^3/uL (0.0-0.8); MONO % 9.5 % (2.0-8.0); NEUTROPHILS # 2.3 10^3/uL (1.5-8.5); NEUTROPHILS % 30.2 % (36.0-66.0); PLATELET COUNT, AUTOMATED 265 10^3/uL (150-450); RED BLOOD COUNT 3.93 10^6/uL (4.30-6.10); WHITE BLOOD COUNT 7.6 10^3/uL (4.0-10.0)
[2024-07-04 15:40] LABS: INR 1.98; PROTHROMBIN TIME 22.7 SECONDS (12.5-14.5)
[2024-07-04 15:49] LABS: ALBUMIN 3.4 G/DL (3.2-5.2); ALKALINE PHOSPHATASE 97 U/L (40-129); ALT/SGPT 27 U/L (7.0-40); AST/SGOT 15 U/L (<34); BILIRUBIN,TOTAL 1.6 MG/DL (0.3-1.2); BLOOD UREA NITROGEN 20 MG/DL (9-23); CALCIUM LEVEL 9.5 MG/DL (8.3-10.6); CARBON DIOXIDE LEVEL 30 MMOL/L (20-31); CHLORIDE LEVEL 107 MMOL/L (98-107); CREATININE FOR GFR 0.64 MG/DL (0.70-1.30); FERRITIN 435.5 NG/ML (10.5-307.3); GLOMERULAR FILTRATION RATE > 60.0 (>35); GLUCOSE, FASTING 131 MG/DL (74-106); POTASSIUM SERUM 4.9 MMOL/L (3.5-5.1); PTH INTACT 29.3 PG/ML (18.5-88.0); SODIUM LEVEL 140 MMOL/L (136-145); THYROID STIMULATING HORMONE 2.491 uIU/ML (0.55-4.78); TOTAL 25(OH) VITAMIN D 45.5 NG/ML (20.0-100.0); TOTAL PROTEIN 6.8 G/DL (5.7-8.2); VITAMIN B12 LEVEL 920 PG/ML (211-911)
[2024-07-04 15:51] LABS: FREE T4 1.34 NG/DL (0.89-1.76)
[2024-07-04 17:03] LABS: HEMOGLOBIN A1c 6.2 % (4.0-6.0)
== END ==
LOC: M PLALAB 12:24
PROVIDERS: ATTEND Family Medicine
DX: E53.8 Deficiency of other specified B group vitamins (principal); I10 Essential (primary) hypertension; Z86.718 Personal history of other venous thrombosis and embolism; E55.9 Vitamin D deficiency, unspecified; E11.9 Type 2 diabetes mellitus without complications

== ENCOUNTER → 2024-11-20 | Outpatient (CLI) | payer MEDICARE ==
[2024-11-20 14:16] LABS: BASO # 0.1 10^3/uL (0.0-0.2); BASO % 0.9 % (0.0-1.0); EOS % 0.4 % (0.0-3.0); HEMATOCRIT 40.6 % (42.0-52.0); HEMOGLOBIN 13.7 g/dl (13.5-17.5); LYMPH # 3.7 10^3/uL (1.5-5.0); LYMPH % 40.2 % (24.0-44.0); MEAN CORPUSCULAR HEMOGLOBIN 36.1 pg (27.0-33.0); MEAN CORPUSCULAR HGB CONC 33.7 g/dl (32.0-36.5); MEAN CORPUSCULAR VOLUME 107.1 fl (80.0-96.0); MONO # 0.6 10^3/uL (0.0-0.8); NEUTROPHILS # 4.7 10^3/uL (1.5-8.5); NEUTROPHILS % 51.3 % (36.0-66.0); PLATELET COUNT, AUTOMATED 282 10^3/uL (150-450); RED BLOOD COUNT 3.79 10^6/uL (4.30-6.10); WHITE BLOOD COUNT 9.1 10^3/uL (4.0-10.0)
[2024-11-20 14:20] LABS: ALBUMIN 3.4 G/DL (3.2-5.2); ALKALINE PHOSPHATASE 86 U/L (40-129); ALT/SGPT 27 U/L (7.0-40); AST/SGOT 17 U/L (<34); BILIRUBIN,TOTAL 1.7 MG/DL (0.3-1.2); BLOOD UREA NITROGEN 25 MG/DL (9-23); CALCIUM LEVEL 9.3 MG/DL (8.3-10.6); CARBON DIOXIDE LEVEL 29 MMOL/L (20-31); CHLORIDE LEVEL 104 MMOL/L (98-107); CHOLESTEROL LEVEL 126 MG/DL (<200); CHOLESTEROL RISK RATIO 2.56 (<5); GLOMERULAR FILTRATION RATE > 60.0 (>35); GLUCOSE, FASTING 251 MG/DL (74-106); HDL CHOLESTEROL 49.1 MG/DL (>40); LDL CHOLESTEROL 61.7 MG/DL (<100); NON-HDL-C 76.9 MG/DL; POTASSIUM SERUM 4.5 MMOL/L (3.5-5.1); PSA SCREENING 1.59 NG/ML (< 4.00); SODIUM LEVEL 140 MMOL/L (136-145); TOTAL PROTEIN 7.1 G/DL (5.7-8.2); TRIGLYCERIDES LEVEL 76 MG/DL (<150)
[2024-11-20 14:22] LABS: FREE T4 1.34 NG/DL (0.89-1.76); THYROID STIMULATING HORMONE 3.087 uIU/ML (0.55-4.78)
== END ==
LOC: M PLALAB 11:03
PROVIDERS: ATTEND Physician Assistant Medical
DX: E03.9 Hypothyroidism, unspecified (principal); I10 Essential (primary) hypertension; Z12.5 Encounter for screening for malignant neoplasm of prostate; I48.91 Unspecified atrial fibrillation; E78.5 Hyperlipidemia, unspecified; K72.10 Chronic hepatic failure without coma
CPT/HCPCS: 36415; 80053; 80061; 84439; 84443; 85025; G0103

== ENCOUNTER → 2025-03-27 | Outpatient (CLI) | payer MEDICARE ==
[~2025-03-27] MED LIST changes: -FLOM0.4C39 PO; +TAMS-18 PO
[2025-03-27 12:33] LABS: INR 2.37
== END ==
LOC: M PLALAB 08:19
PROVIDERS: ATTEND Physician Assistant Medical
DX: Z79.01 Long term (current) use of anticoagulants (principal)

== ENCOUNTER → 2025-04-04 | Outpatient (CLI) | payer MEDICARE ==
[2025-04-04 10:23] LABS: BASO # 0.1 10^3/uL (0.0-0.2); BASO % 1.3 % (0.0-1.0); EOS # 0.1 10^3/uL (0.0-0.5); EOS % 1.7 % (0.0-3.0); LYMPH # 3.7 10^3/uL (1.5-5.0); LYMPH % 51.9 % (24.0-44.0); MONO # 0.6 10^3/uL (0.0-0.8); MONO % 8.3 % (2.0-8.0); NEUTROPHILS # 2.6 10^3/uL (1.5-8.5); NEUTROPHILS % 36.7 % (36.0-66.0); PLATELET COUNT, AUTOMATED 272 10^3/uL (150-450)
[2025-04-04 10:34] LABS: INR 2.86
[2025-04-04 10:53] LABS: ALT/SGPT 35.0 U/L (7.0-40); AST/SGOT 23.0 U/L (<34); CALCIUM LEVEL 9.2 MG/DL (8.3-10.6); CARBON DIOXIDE LEVEL 25.0 MMOL/L (20-31); CHLORIDE LEVEL 106.0 MMOL/L (98-107); CREATININE FOR GFR 0.79 MG/DL (0.70-1.30); GLOMERULAR FILTRATION RATE 88.7 (>35); POTASSIUM SERUM 5.1 MMOL/L (3.5-5.1); PTH INTACT 51.8 PG/ML (18.5-88.0); SODIUM LEVEL 143.0 MMOL/L (136-145)
[2025-04-04 10:54] LABS: TOTAL 25(OH) VITAMIN D 61.6 NG/ML (20.0-100.0)
[2025-04-04 10:55] LABS: FREE T4 1.38 NG/DL (0.89-1.76); VITAMIN B12 LEVEL 1283.0 PG/ML (211-911)
[2025-04-04 12:10] LABS: ESTIMATED AVERAGE GLUCOSE 143.0 MG/DL (60-110)
[2025-04-09 13:41] LABS: SOLUBLE TRANSFERRIN RECEPTOR 0.9 mg/L (0.76-1.76)
== END ==
LOC: M PLALAB 08:54
PROVIDERS: ATTEND Family Medicine
DX: E53.8 Deficiency of other specified B group vitamins (principal); I10 Essential (primary) hypertension; E03.9 Hypothyroidism, unspecified; E11.9 Type 2 diabetes mellitus without complications; E55.9 Vitamin D deficiency, unspecified; Z79.01 Long term (current) use of anticoagulants; K74.00 Hepatic fibrosis, unspecified

== ENCOUNTER → 2025-05-03 | Outpatient (CLI) | payer MEDICARE ==
[2025-05-03 10:40] LABS: INR 2.22
== END ==
LOC: M PLALAB 07:19
PROVIDERS: ATTEND Physician Assistant Medical
DX: I48.91 Unspecified atrial fibrillation (principal)

== ENCOUNTER → 2025-06-06 | Outpatient (CLI) | payer MEDICARE ==
[2025-06-06 10:02] LABS: INR 2.55
== END ==
LOC: M PLALAB 08:44
PROVIDERS: ATTEND Physician Assistant Medical
DX: I48.91 Unspecified atrial fibrillation (principal); Z79.01 Long term (current) use of anticoagulants

== ENCOUNTER → 2025-06-21 | Outpatient (CLI) | payer MEDICARE | LOC: M PLAIMG 10:13 | PROVIDERS: ATTEND Family Medicine | DX: M17.0 Bilateral primary osteoarthritis of knee (principal) ==

== ENCOUNTER → 2025-07-10 | Outpatient (CLI) | payer MEDICARE ==
[2025-07-10 10:09] LABS: INR 2.28
== END ==
LOC: M PLALAB 08:34
PROVIDERS: ATTEND Physician Assistant Medical
DX: I48.91 Unspecified atrial fibrillation (principal)

== ENCOUNTER → 2025-08-10 | Outpatient (CLI) | payer MEDICARE ==
[2025-08-10 10:43] LABS: INR 2.31
== END ==
LOC: M PLALAB 08:52
PROVIDERS: ATTEND Physician Assistant Medical
DX: I48.91 Unspecified atrial fibrillation (principal)